=== PATIENT | female | born 1950 | race Caucasian/White ===

== ENCOUNTER 2017-07-05 11:13 | Emergency (ER) | payer OTHER ==
[2017-07-05 11:30] VITALS: BMI 34.7
--- NOTE | 2017-07-05 11:39 | PDOC ---
History of Present Illness - General Chief Complaint: Shortness of Breath Stated Complaint: SOB Time Seen by Provider: 07/05/17 11:39 Past History - Past Medical History Allergies/Adverse Reactions: Allergies Allergy/AdvReac Type Severity Reaction Status Date / Time acetaminophen [From Percocet] Allergy Verified 10/07/14 11:54 hydromorphone HCl Allergy Verified 10/07/14 11:54 [From Dilaudid] oxycodone HCl [From Percocet] Allergy Verified 10/07/14 11:54 Home Medications: Ambulatory Orders Albuterol Sulfate [Proair Hfa -] 1 - 2 inh PO PRN PRN 10/07/14 Aspirin [ASA -] 162 mg PO DAILY 10/07/14 Budesonide/Formeterol Fumarate [SYMBICORT 160/4.5mcg -] 2 inh PO DAILY 10/07/14 Clopidogrel Bisulfate [Plavix -] 75 mg PO DAILY 10/07/14 Furosemide [Lasix -] 20 mg PO DAILY 10/07/14 Rosuvastatin Calcium [Crestor] 20 mg PO DAILY 10/07/14 Tiotropium [place] [Spiriva -] 1 inh IH DAILY 10/07/14 Cardiac Disorders: Yes (cad,stentsx2,mvr) COPD: Yes CHF: Yes HTN: Yes Hypercholesterolemia: Yes - Surgical History Cardiac Surgery: Yes (stentx2) Orthopedic Surgery: Yes (edna hip replace) - Suicide/Smoking/Psychosocial Hx Smoking History: Former smoker Have you smoked in the past 12 months: No If you are a former smoker, when did you quit?: 15 YEARS AGO Information on smoking cessation initiated: No Hx Alcohol Use: No Drug/Substance Use Hx: No Substance Use Type: None Hx Substance Use Treatment: No *Physical Exam - Vital Signs Last Vital Signs Temp Pulse Resp BP Pulse Ox 98.0 F 86 24 149/56 92 L 07/05/17 11:26 07/05/17 11:26 07/05/17 11:26 07/05/17 11:26 07/05/17 11:26
--- NOTE | 2017-07-05 11:42 | PDOC ---
History of Present Illness - General Chief Complaint: Shortness of Breath Stated Complaint: SOB Time Seen by Provider: 07/05/17 11:39 - History of Present Illness Initial Comments: 07/05/17 11:51 Ms. Cowan is a 66 yo female w/ pmh of COPD and CAD s/p PCI LAD who presents complaining of 1-2 months of severe cough productive of white sputum. She reports associated runny nose and body aches. Ms. Cowan had presented to her primary doctor "around a month ago" for this same problem and been proscribed a Z-joan and oral steroids but says they were ineffective. She also reports a fever of "around 100" at home this morning. The patient denies chest pain, headache and dizziness. Denies chills, nausea, vomit, diarrhea and constipation. Denies dysuria, frequency, urgency and hematuria. Allergies: acetaminophen, hydromorphone, oxycodone Past History - Past Medical History Allergies/Adverse Reactions: Allergies Allergy/AdvReac Type Severity Reaction Status Date / Time acetaminophen [From Percocet] Allergy Verified 10/07/14 11:54 hydromorphone HCl Allergy Verified 10/07/14 11:54 [From Dilaudid] oxycodone HCl [From Percocet] Allergy Verified 10/07/14 11:54 Home Medications: Ambulatory Orders Albuterol Sulfate [Proair Hfa -] 1 - 2 inh PO PRN PRN 10/07/14 Aspirin [ASA -] 162 mg PO DAILY 10/07/14 Clopidogrel Bisulfate [Plavix -] 75 mg PO DAILY 10/07/14 Furosemide [Lasix -] 20 mg PO DAILY 10/07/14 Rosuvastatin Calcium [Crestor] 20 mg PO HS 10/07/14 Tiotropium [place] [Spiriva -] 1 inh IH DAILY 10/07/14 Budesonide/Formeterol Fumarate [SYMBICORT 160/4.5mcg -] 1 puff IN PRN 07/05/17 Doxycycline Monohydrate [Monodox] 100 mg PO Q12H #20 capsule 07/05/17 Losartan Potassium 25 mg PO DAILY 07/05/17 Montelukast Sodium [Singulair] 4 mg PO DAILY 07/05/17 Cardiac Disorders: Yes (cad,stentsx2,mvr) COPD: Yes CHF: Yes HTN: Yes Hypercholesterolemia: Yes - Surgical History Cardiac Surgery: Yes (stentx2) Orthopedic Surgery: Yes (edna hip replace) - Suicide/Smoking/Psychosocial Hx Smoking History: Former smoker Have you smoked in the past 12 months: No If you are a former smoker, when did you quit?: 15 YEARS AGO Information on smoking cessation initiated: No Hx Alcohol Use: No Drug/Substance Use Hx: No Substance Use Type: None Hx Substance Use Treatment: No Review of Systems - Review of Systems Comments:: 07/05/17 12:04 GENERAL/CONSTITUTIONAL: +Subjective home fever as above. No chills. No weakness. HEAD, EYES, EARS, NOSE AND THROAT: No change in vision. No ear pain or discharge. No sore throat. CARDIOVASCULAR: No chest pain or shortness of breath RESPIRATORY: +Chronic cough with white sputum with associated wheezing. No hemoptysis. GASTROINTESTINAL: No nausea, vomiting, diarrhea or constipation. GENITOURINARY: No dysuria, frequency, or change in urination. MUSCULOSKELETAL: +Resolved back pain she reports is no longer bothering her. No joint or muscle swelling or pain. SKIN: No rash NEUROLOGIC: No headache, vertigo, loss of consciousness, or change in strength/ sensation. ENDOCRINE: No increased thirst. No abnormal weight change HEMATOLOGIC/LYMPHATIC: No anemia, easy bleeding, or history of blood clots. ALLERGIC/IMMUNOLOGIC: No hives or skin allergy. *Physical Exam - Vital Signs Last Vital Signs Temp Pulse Resp BP Pulse Ox 98.0 F 86 24 149/56 92 L 07/05/17 11:26 07/05/17 11:26 07/05/17 11:26 07/05/17 11:26 07/05/17 11:26 - Physical Exam Comments: 07/05/17 12:05 GENERAL: Awake, alert, and fully oriented, in no acute distress HEAD: No signs of trauma, normocephalic, atraumatic EYES: PERRLA, EOMI, sclera anicteric, conjunctiva clear ENT: Auricles normal inspection, hearing grossly normal, nares patent, oropharynx clear without exudates. Moist mucosa NECK: Normal ROM, supple, no lymphadenopathy, JVD, or masses LUNGS: +Diffusely tight sounding. HEART: Regular rate and rhythm, normal S1 and S2, no murmurs, rubs or gallops, peripheral pulses normal and equal bilaterally. ABDOMEN: Soft, nontender, normoactive bowel sounds. No guarding, no rebound. No masses EXTREMITIES: Normal inspection, Normal range of motion, no edema. No clubbing or cyanosis. NEUROLOGICAL: Cranial nerves II through XII grossly intact. Normal speech, normal gait, no focal sensorimotor deficits SKIN: Warm, Dry, normal turgor, no rashes or lesions noted. ED Treatment Course - LABORATORY CBC & Chemistry Diagram: 07/05/17 13:41 07/05/17 13:41 Medical Decision Making - Medical Decision Making 07/05/17 12:33 Ms. Cowan presents w/ 1-2 months of cough c/w viral illness. Small possible pneumonia noted to R lung base on CXR. Rx given for CAP treatment. Patient will follow-up as needed with PCP. *DC/Admit/Observation/Transfer Diagnosis at time of Disposition: COPD exacerbation - Discharge Dispostion Disposition: HOME - Prescriptions Prescriptions: Doxycycline Monohydrate [Monodox] 100 mg PO Q12H #20 capsule - Referrals - Patient Instructions Printed Discharge Instructions: DI for Chronic Obstructive Pulmonary Disease Additional Instructions: Please take medications as proscribed and follow-up with your primary care doctor on Saturday as discussed. - Post Discharge Activity
[2017-07-05] MEDS ORDERED: ALBUTEROL SO4 0.083% IH SOL 2.5 MG/3 ML VIAL.NEB. NEB ONE (13:07)
[2017-07-05] MEDS ORDERED: IPRATROPIUM BR 0.02% 0.5 MG/2.5 ML VIAL.NEB. NEB ONE (13:07)
[2017-07-05] MEDS: ALBUTEROL SO4 2.5/IPRATROPIUM 0.5 INH SOL 3 ML VIAL.NEB. NEB SCH ×4 (13:25→16:55)
[2017-07-05 13:56] LABS: BASOPHIL 0.7 % (0-2.0); EOSINOPHIL 1.9 % (0-4.5); MCH 28.4 pg (25.7-33.7); MCHC 32.8 g/dl (32.0-36.0); MEAN CELL VOLUME 86.5 fl (80-96); MEAN PLT VOLUME 8.6 fl (7.5-11.1); NEUTROPHILS 68.8 % (42.8-82.8); PLATELET COUNT 234 K/MM3 (134-434); RDW 15.7 % (11.6-15.6); WHITE BLOOD COUNT 9.7 K/mm3 (4.0-10.0)
[2017-07-05] MEDS ORDERED: ALBUTEROL SO4 2.5/IPRATROPIUM 0.5 INH SOL 3 ML VIAL.NEB. NEB SCH (14:00)
[2017-07-05] MEDS ORDERED: ALBUTEROL SO4 2.5/IPRATROPIUM 0.5 INH SOL 3 ML VIAL.NEB. NEB ONE ×2 (14:25→16:56)
[2017-07-05 14:35] LABS: ALBUMIN 3.4 g/dl (3.4-5.0); ALK PHOS 109 U/L (45-117); ANION GAP 13 (8-16); BILIRUBIN,TOTAL 0.7 mg/dL (0.2-1.0); CALCIUM 8.7 mg/dL (8.5-10.1); CO2 23 mmol/L (21-32); CREATININE 0.8 mg/dL (0.55-1.02); GLUCOSE,RANDOM 110 mg/dL (74-106); SGPT/ALT 55 U/L (12-78); TOT PROT 8.2 g/dl (6.4-8.2)
[2017-07-05 14:36] LABS: SGOT/AST 73 U/L (15-37)
[2017-07-05] MEDS ORDERED: LEVOFLOXACIN 500 MG IVPB 500 MG/100 ML BAG IVPB ONE ×2 (16:03→16:56)
--- NOTE | 2017-07-05 16:32 | EKG ---
Test Reason : Blood Pressure : / mmHG Vent. Rate : 083 BPM Atrial Rate : 083 BPM P-R Int : 160 ms QRS Dur : 076 ms QT Int : 402 ms P-R-T Axes : 009 -11 014 degrees QTc Int : 472 ms POOR DATA QUALITY, INTERPRETATION MAY BE ADVERSELY AFFECTED NORMAL SINUS RHYTHM INFERIOR INFARCT (CITED ON OR BEFORE 07-OCT-2014) POSSIBLE ANTERIOR INFARCT (CITED ON OR BEFORE 07-OCT-2014) ABNORMAL ECG WHEN COMPARED WITH ECG OF 07-OCT-2014 12:34, T WAVE INVERSION NO LONGER EVIDENT IN ANTEROLATERAL LEADS Confirmed by MD GREG, SUMAN ([id number]) on 07/05/2017 4:31:56 PM Referred By: Confirmed By:SUMAN GARZA MD
--- NOTE | 2017-07-05 16:57 | PDOC ---
Attending Attestation - Resident Resident Name: Cal Ma - HPI HPI: 07/05/17 16:51 Pt presents to the Ed complaining of productive cough, shortness of breath and subjective fever. Seen by her PMD and given z pack without relief. 07/05/17 16:52 - Physicial Exam PE: 07/05/17 16:54 Agree with resident exam. PAtient is wheezing on my initial exam, with good air entry. No respiratory distress. - Medical Decision Making 07/05/17 16:55 Patient presents to the ED complaining of shortness of breath and wheezing consistent with prior COPD exacerbations. No relief despite nebs and steroids. Improving in the ED after nebs and steroids. Questionable PNA on CXR--will treat with levaquin and reassess.
[2017-07-05 17:25] VITALS: BP 133/66; PULSE 87; TEMP 98.1
--- NOTE | 2017-07-06 20:23 | EKG ---
Test Reason : Blood Pressure : / mmHG Vent. Rate : 086 BPM Atrial Rate : 086 BPM P-R Int : 158 ms QRS Dur : 078 ms QT Int : 400 ms P-R-T Axes : 033 -09 006 degrees QTc Int : 478 ms NORMAL SINUS RHYTHM INFERIOR INFARCT (CITED ON OR BEFORE 07-OCT-2014) ANTERIOR INFARCT (CITED ON OR BEFORE 07-OCT-2014) ABNORMAL ECG WHEN COMPARED WITH ECG OF 05-JUL-2017 11:53, NO SIGNIFICANT CHANGE WAS FOUND Confirmed by BRENDA ABEBE MD ([id number]) on 07/06/2017 8:22:52 PM Referred By: Confirmed By:BRENDA ABEBE MD
== END 2017-07-05 17:33 | disposition home or self-care (01) ==
LOC: JER 11:13
PROC: 3E0F7GC Introduction of Other Therapeutic Substance into Respiratory Tract, Via Natural or Artificial Opening (ICD-10-PCS; principal; 2017-07-05)
PROC: 3E03329 Introduction of Other Anti-infective into Peripheral Vein, Percutaneous Approach (ICD-10-PCS; 2017-07-05)
DX: J44.1 Chronic obstructive pulmonary disease with (acute) exacerbation (principal); I25.10 Atherosclerotic heart disease of native coronary artery without angina pectoris; I10 Essential (primary) hypertension; Z95.5 Presence of coronary angioplasty implant and graft; Z87.891 Personal history of nicotine dependence
CPT/HCPCS: 36415; 71020-TC; 80053; 85025; 87804; 93005; 93010; 94640; 96365; 99283-25

== ENCOUNTER 2017-09-30 07:19 | Inpatient (IN) | payer OTHER ==
[2017-09-30] MEDS ORDERED: SODIUM CHLORIDE 250 ML IV ONE (09:00)
[2017-09-30] MEDS ORDERED: DEXAMETHASONE INJECTION 20 MG, RANITIDINE INJECTION 50 MG, DIPHENHYDRAMINE 50 MG in SOD... IVPB ONE (10:00)
[2017-09-30] MEDS ORDERED: PALONOSETRON HCL 0.25 MG/5 ML VIAL IVPUSH ONE (10:00)
[2017-09-30 10:19] LABS: BASO % 0.6 % (0-2.0); HEMATOCRIT 42.9 % (32.4-45.2); HEMOGLOBIN 14.6 GM/dL (10.7-15.3); LYMPH % 14.8 % (8-40); MCH 29.7 pg (25.7-33.7); MCHC 34.1 g/dl (32.0-36.0); MEAN PLT VOLUME 8.1 fl (7.5-11.1); MONO % 1.2 % (3.8-10.2); NEUT % 83.4 % (42.8-82.8); PLATELET COUNT 289 K/MM3 (134-434); RBC 4.93 M/mm3 (3.60-5.2); RDW 16.1 % (11.6-15.6); WHITE BLOOD COUNT 4.3 K/mm3 (4.0-10.0)
[2017-09-30] MEDS ORDERED: PACLITAXEL 156 MG in SODIUM CHLORIDE 250 ML IVPB ONE (10:30)
[2017-09-30 10:47] LABS: ALBUMIN 3.3 g/dl (3.4-5.0); ALK PHOS 128 U/L (45-117); ANION GAP 16 (8-16); BILIRUBIN,DIRECT 0.2 mg/dL (0.0-0.2); BILIRUBIN,TOTAL 0.6 mg/dL (0.2-1.0); BLOOD UREA NITROGEN 17 mg/dL (7-18); CALCIUM 9.1 mg/dL (8.5-10.1); CHLORIDE 102 mmol/L (98-107); CO2 18 mmol/L (21-32); CREATININE 1.1 mg/dL (0.55-1.02); MAGNESIUM 2.6 mg/dL (1.8-2.4); POTASSIUM 3.8 mmol/L (3.5-5.1); SGOT/AST 29 U/L (15-37); SGPT/ALT 27 U/L (12-78); SODIUM 136 mmol/L (136-145); TOT PROT 9.2 g/dl (6.4-8.2)
[2017-09-30 10:57] LABS: GLUCOSE,RANDOM 301 mg/dL (74-106)
[2017-09-30] MEDS ORDERED: LOSARTAN POTASSIUM 25 MG TABLET PO ONE (11:00)
[2017-09-30] MEDS ORDERED: INSULIN (NOVOLOG) ASPART 100 UNITS/ML 10ML VIAL SQ ONE (11:30)
[2017-09-30] MEDS ORDERED: SODIUM CHLORIDE IVPB ONE (11:30)
[2017-09-30] MEDS ORDERED: CARBOPLATIN IVPB ONE (11:30)
[2017-09-30] MEDS: INSULIN SLIDING SCALE (NOVOLOG) 1 VIAL SQ SCH ×2 (16:21→21:39)
[2017-09-30] MEDS ORDERED: ALBUTEROL SO4 0.083% IH SOL 2.5 MG/3 ML VIAL.NEB. NEB ONE (17:18)
--- NOTE | 2017-09-30 18:48 | PN ---
Chief Complaint: PAtient with recently diagnosed lung cancer received carbo/taxol HAS been coughing O2 sat 84% R/A no fever/chills Last Vital Signs Temp Pulse Resp BP Pulse Ox 98.4 F 87 22 148/65 93 L 09/30/17 10:00 09/30/17 17:42 09/30/17 10:00 09/30/17 10:00 09/30/17 17:42 Cor: RSR, No murmurs, No gallops Lungs: Clear to P&A Abd: Soft, Normal bowel sounds, Ext:No significant edema Abnormal Lab Results 09/30/17 09/30/17 09:58 09:58 RDW 16.1 H Neutrophils % 83.4 H D Monocytes % 1.2 L D Carbon Dioxide 18 L Creatinine 1.1 H Random Glucose 301 H* Magnesium 2.6 H Alkaline Phosphatase 128 H Total Protein 9.2 H Albumin 3.3 L Active Medications Generic Name Dose Route Start Last Admin Trade Name Freq PRN Reason Stop Dose Admin Aspirin 162 mg 10/01/17 10:00 Asa - PO DAILY NICK Budesonide/Formoterol Fumarate 1 puff 09/30/17 22:00 Symbicort 160/4.5mcg - IH BID NICK Clopidogrel Bisulfate 75 mg 10/01/17 10:00 Plavix - PO DAILY NICK Guaifenesin/Codeine Phosphate 10 ml 09/30/17 18:48 Robitussin Ac - PO Q8H PRN COUGH Insulin Aspart 1 vial 09/30/17 16:30 09/30/17 16:21 Novolog Vial Sliding Scale - SQ 5 units ACHS NICK Administration Protocol Montelukast Sodium 5 mg 09/30/17 22:00 Singulair - PO HS NICK Rosuvastatin Calcium 20 mg 09/30/17 22:00 Crestor - PO HS NICK A/P 67 y/o patient with lung cancer, on carbo/taxol Now with cough/hypoxia received dexamethasone check CXR Nebulizer treatment lasix 20mg respiratory eval for home O2 robutussin prn continue home meds - Medications/Allergies Allergies/Adverse Reactions: Allergies Allergy/AdvReac Type Severity Reaction Status Date / Time acetaminophen [From Percocet] Allergy Verified 10/07/14 11:54 hydromorphone HCl Allergy Verified 10/07/14 11:54 [From Dilaudid] oxycodone HCl [From Percocet] Allergy Verified 10/07/14 11:54 Medications: Current Medications Insulin Aspart (Novolog Vial Sliding Scale -) 1 vial SQ ACHS NICK PRN Reason: Protocol Last Admin: 09/30/17 16:21 Dose: 5 units - Objective Vital Signs: Vital Signs Temperature 97.9 F 09/30/17 09:52 Pulse Rate 87 09/30/17 17:42 Respiratory Rate 22 09/30/17 09:52 Blood Pressure 149/75 09/30/17 09:52 O2 Sat by Pulse Oximetry (%) 93 L 09/30/17 17:42 Labs: CBC, BMP 09/30/17 09:58 09/30/17 09:58
[2017-09-30] MEDS ORDERED: FUROSEMIDE 20 MG TABLET (FP) PO ONE (18:52)
[2017-09-30] MEDS ORDERED: INSULIN (NOVOLOG) ASPART 100 UNITS/ML 10ML VIAL ONE (21:29)
[2017-09-30] MEDS: ROSUVASTATIN CA 20 MG TABLET (FP) PO SCH (21:39)
[2017-09-30] MEDS: BUDESONIDE/FORMETEROL FUMARATE 160/4.5 mcg INHALER IH SCH (21:39)
[2017-09-30] MEDS: MONTELUKAST NA 5 MG TAB.CHEW PO SCH (21:39)
[2017-09-30] MEDS: guaiFENesin/CODEINE 10 ML UNIT-DOSE CUPS PO PRN (21:44)
[2017-10-01] MEDS: INSULIN SLIDING SCALE (NOVOLOG) 1 VIAL SQ SCH ×4 (06:46→21:37)
[2017-10-01] MEDS ORDERED: INSULIN (NOVOLOG) ASPART 100 UNITS/ML 10ML VIAL ONE ×3 (06:53→20:49)
[2017-10-01 07:42] LABS: BASO % 0.1 % (0-2.0); HEMATOCRIT 36.2 % (32.4-45.2); HEMOGLOBIN 12.2 GM/dL (10.7-15.3); LYMPH % 7.1 % (8-40); MCH 29.4 pg (25.7-33.7); MCHC 33.6 g/dl (32.0-36.0); MEAN CELL VOLUME 87.6 fl (80-96); MEAN PLT VOLUME 8.2 fl (7.5-11.1); MONO % 5.1 % (3.8-10.2); NEUT % 87.7 % (42.8-82.8); PLATELET COUNT 257 K/MM3 (134-434); RBC 4.13 M/mm3 (3.60-5.2); RDW 15.8 % (11.6-15.6); WHITE BLOOD COUNT 9.9 K/mm3 (4.0-10.0)
[2017-10-01] MEDS ORDERED: ALBUTEROL SO4 0.083% IH SOL 2.5 MG/3 ML VIAL.NEB. NEB SCH (08:00)
[2017-10-01 08:08] LABS: CHLORIDE 106 mmol/L (98-107); POTASSIUM 4.2 mmol/L (3.5-5.1); SODIUM 138 mmol/L (136-145)
[2017-10-01 08:14] LABS: ALBUMIN 2.9 g/dl (3.4-5.0); ALK PHOS 101 U/L (45-117); ANION GAP 10 (8-16); BILIRUBIN,TOTAL 0.4 mg/dL (0.2-1.0); BLOOD UREA NITROGEN 22 mg/dL (7-18); CALCIUM 8.1 mg/dL (8.5-10.1); CO2 22 mmol/L (21-32); GLUCOSE,RANDOM 207 mg/dL (74-106); SGOT/AST 15 U/L (15-37); SGPT/ALT 22 U/L (12-78); TOT PROT 7.5 g/dl (6.4-8.2)
[2017-10-01] MEDS ORDERED: PT OWN MED DRAWER 7, Y5N ONE (09:11)
[2017-10-01] MEDS: CLOPIDOGREL BISULFATE 75 MG TABLET (FP) PO SCH (09:19)
[2017-10-01] MEDS: LOSARTAN POTASSIUM 25 MG TABLET PO SCH (09:19)
[2017-10-01] MEDS: ASPIRIN 81 MG CHEWABLE TABLETS PO SCH (09:19)
[2017-10-01] MEDS: BUDESONIDE/FORMETEROL FUMARATE 160/4.5 mcg INHALER IH SCH ×2 (09:20→21:33)
[2017-10-01] MEDS ORDERED: FUROSEMIDE 40 MG/4 ML INJECTABLE VIAL IVPUSH ONE (10:46)
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
[2017-10-01] MEDS ORDERED: FUROSEMIDE 40 MG/4 ML INJECTABLE VIAL IVPUSH SCH (10:59)
[2017-10-01] MEDS ORDERED: ALBUTEROL SO4 0.083% IH SOL 2.5 MG/3 ML VIAL.NEB. NEB PRN (11:00)
[2017-10-01] MEDS: FUROSEMIDE 40 MG/4 ML INJECTABLE VIAL IVPUSH SCH (13:21)
[2017-10-01] MEDS: ALBUTEROL SO4 2.5/IPRATROPIUM 0.5 INH SOL 3 ML VIAL.NEB. NEB SCH ×2 (14:30→21:10)
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
[2017-10-01 15:50] VITALS: BMI 34.0
--- NOTE | 2017-10-01 15:50 | EKG ---
Test Reason : Blood Pressure : / mmHG Vent. Rate : 076 BPM Atrial Rate : 076 BPM P-R Int : 160 ms QRS Dur : 076 ms QT Int : 418 ms P-R-T Axes : 047 -05 024 degrees QTc Int : 470 ms NORMAL SINUS RHYTHM INFERIOR INFARCT (CITED ON OR BEFORE 07-OCT-2014) ABNORMAL ECG WHEN COMPARED WITH ECG OF 05-JUL-2017 15:48, CRITERIA FOR ANTERIOR INFARCT ARE NO LONGER PRESENT NONSPECIFIC T WAVE ABNORMALITY NO LONGER EVIDENT IN ANTERIOR LEADS Confirmed by MD Amado, Vance ([id number]) on 10/01/2017 3:50:09 PM Referred By: Cinthia STRAUSS Confirmed By:Vance Fischer MD
[2017-10-01] MEDS: MONTELUKAST NA 5 MG TAB.CHEW PO SCH (21:33)
[2017-10-01] MEDS: ROSUVASTATIN CA 20 MG TABLET (FP) PO SCH (21:33)
--- NOTE | 2017-10-01 21:37 | PN ---
Progress Note (short form) - Note Progress Note: Pt seen and examined. chart reviewed Continues to have cough Cor: RSR, No murmurs, No gallops Lungs: poor inspi effort Abd: Soft, Normal bowel sounds, Ext:No significant edema Temp Pulse Resp BP Pulse Ox 97.3 F L 76 20 104/51 94 L 10/01/17 18:51 10/01/17 18:51 10/01/17 18:51 10/01/17 18:51 10/01/17 15:39 CBC, BMP 10/01/17 06:00 10/01/17 06:00 Current Medications Generic Name Dose Route Start Last Admin Trade Name Freq PRN Reason Stop Dose Admin Albuterol Sulfate 1 amp 10/01/17 11:00 Ventolin 0.083% Nebulizer Soln - NEB Q4H PRN SHORT OF BREATH/WHEEZING Albuterol/Ipratropium 1 amp 10/01/17 14:00 10/01/17 14:30 Duoneb - NEB 1 amp RTID NICK Administration Aspirin 162 mg 10/01/17 10:00 10/01/17 09:19 Asa - PO 162 mg DAILY NICK Administration Budesonide/Formoterol Fumarate 1 puff 09/30/17 22:00 10/01/17 09:20 Symbicort 160/4.5mcg - IH 1 puff BID NICK Administration Clopidogrel Bisulfate 75 mg 10/01/17 10:00 10/01/17 09:19 Plavix - PO 75 mg DAILY NICK Administration Furosemide 40 mg 10/01/17 12:00 10/01/17 13:21 Lasix Injection - IVPUSH 40 mg DAILY NICK Administration Guaifenesin/Codeine Phosphate 10 ml 09/30/17 18:48 09/30/17 21:44 Robitussin Ac - PO 10 ml Q8H PRN Administration COUGH Insulin Aspart 1 vial 09/30/17 16:30 10/01/17 17:24 Novolog Vial Sliding Scale - SQ Not Given ACHS NICK Protocol Losartan Potassium 25 mg 10/01/17 10:00 10/01/17 09:19 Cozaar - PO 25 mg DAILY NICK Administration Montelukast Sodium 5 mg 09/30/17 22:00 09/30/17 21:39 Singulair - PO 5 mg HS NICK Administration Rosuvastatin Calcium 20 mg 09/30/17 22:00 03/05/18 21:39 Crestor - PO 20 mg HS NICK Administration 67 y/o patient with lung cancer, on carbo/taxol Now with cough/hypoxia Multi-factorial. Appreciate cardiology/Pulm eval CXR in the am TTE Diuresis Nebs respiratory eval for home O2 robutussin prn continue home meds monitor FSG DVT ppx
[2017-10-01] MEDS: MAG HYDROX/AL HYDROX/SIMETH 30 ML UNIT-DOSE CUP PO PRN (22:28)
[2017-10-02] MEDS: INSULIN SLIDING SCALE (NOVOLOG) 1 VIAL SQ SCH ×4 (06:19→21:47)
[2017-10-02] MEDS: ALBUTEROL SO4 2.5/IPRATROPIUM 0.5 INH SOL 3 ML VIAL.NEB. NEB SCH ×3 (07:30→21:08)
[2017-10-02 08:03] LABS: MCH 29.3 pg (25.7-33.7); MCHC 33.2 g/dl (32.0-36.0); MEAN CELL VOLUME 88.1 fl (80-96); MEAN PLT VOLUME 8.5 fl (7.5-11.1); PLATELET COUNT 236 K/MM3 (134-434); RBC 4.08 M/mm3 (3.60-5.2); RDW 15.8 % (11.6-15.6); WHITE BLOOD COUNT 9.9 K/mm3 (4.0-10.0)
[2017-10-02 08:21] LABS: ALBUMIN 2.9 g/dl (3.4-5.0); ANION GAP 8 (8-16); BLOOD UREA NITROGEN 26 mg/dL (7-18); CALCIUM 7.7 mg/dL (8.5-10.1); CHLORIDE 102 mmol/L (98-107); CO2 28 mmol/L (21-32); CREATININE 0.9 mg/dL (0.55-1.02); GLUCOSE,RANDOM 128 mg/dL (74-106); POTASSIUM 3.7 mmol/L (3.5-5.1); SGOT/AST 23 U/L (15-37); SGPT/ALT 21 U/L (12-78); SODIUM 138 mmol/L (136-145)
[2017-10-02 08:29] LABS: ALK PHOS 100 U/L (45-117); BILIRUBIN,TOTAL 0.3 mg/dL (0.2-1.0); MAGNESIUM 2.8 mg/dL (1.8-2.4); TOT PROT 7.1 g/dl (6.4-8.2)
[2017-10-02] MEDS: BUDESONIDE/FORMETEROL FUMARATE 160/4.5 mcg INHALER IH SCH ×2 (09:21→21:41)
[2017-10-02] MEDS: ASPIRIN 81 MG CHEWABLE TABLETS PO SCH (09:22)
[2017-10-02] MEDS: guaiFENesin/CODEINE 10 ML UNIT-DOSE CUPS PO PRN ×3 (09:22→22:30)
[2017-10-02] MEDS: CLOPIDOGREL BISULFATE 75 MG TABLET (FP) PO SCH (09:22)
[2017-10-02] MEDS: LOSARTAN POTASSIUM 25 MG TABLET PO SCH (09:22)
[2017-10-02] MEDS: FUROSEMIDE 40 MG/4 ML INJECTABLE VIAL IVPUSH SCH (09:22)
--- NOTE | 2017-10-02 11:08 | PN ---
Progress Note (short form) - Note Progress Note: PULMONARY AWAKE/ALERT COUGH IS IMPROVING VSS/AFEBRILE MINIMAL SCATTERED RHONCHI S1S2 BS+ OBESE NO EDEMA LABS/MEDS/NOTES/IMAGES/ECHO REVIEWED Acute Hypoxic Respiratory Failure resolved Acute on Chronic Diastolic Heart Failure Mitral/Aortic Regurgitation CAD NSCLC on chemo COPD HTN Hypercholesterolemia - IV lasix - monitor urine output, creatinine - inhaled bronchodilators - less likely infectious given no fevers, normal WBC and nontoxic appearing, can defer antibiotics at this time - O2 to keep SpO2 >90% - will need to check ambulatory SpO2 to assess for home O2 - DVT prophylaxis Luis Felipe PAREDES MD
--- NOTE | 2017-10-02 11:19 | PN ---
Progress Note (short form) - Note Progress Note: Pt seen and examined. chart reviewed Continues to have cough Cor: RSR, No murmurs, No gallops Lungs: poor inspi effort Abd: Soft, Normal bowel sounds, Ext:No significant edema Temp Pulse Resp BP Pulse Ox 97.3 F L 76 20 104/51 94 L 10/01/17 18:51 10/01/17 18:51 10/01/17 18:51 10/01/17 18:51 10/01/17 15:39 CBC, BMP 10/01/17 06:00 10/01/17 06:00 Current Medications Generic Name Dose Route Start Last Admin Trade Name Freq PRN Reason Stop Dose Admin Albuterol Sulfate 1 amp 10/01/17 11:00 Ventolin 0.083% Nebulizer Soln - NEB Q4H PRN SHORT OF BREATH/WHEEZING Albuterol/Ipratropium 1 amp 10/01/17 14:00 10/01/17 14:30 Duoneb - NEB 1 amp RTID NICK Administration Aspirin 162 mg 10/01/17 10:00 10/01/17 09:19 Asa - PO 162 mg DAILY NICK Administration Budesonide/Formoterol Fumarate 1 puff 09/30/17 22:00 10/01/17 09:20 Symbicort 160/4.5mcg - IH 1 puff BID NICK Administration Clopidogrel Bisulfate 75 mg 10/01/17 10:00 10/01/17 09:19 Plavix - PO 75 mg DAILY NICK Administration Furosemide 40 mg 10/01/17 12:00 10/01/17 13:21 Lasix Injection - IVPUSH 40 mg DAILY NICK Administration Guaifenesin/Codeine Phosphate 10 ml 09/30/17 18:48 09/30/17 21:44 Robitussin Ac - PO 10 ml Q8H PRN Administration COUGH Insulin Aspart 1 vial 09/30/17 16:30 10/01/17 17:24 Novolog Vial Sliding Scale - SQ Not Given ACHS NICK Protocol Losartan Potassium 25 mg 10/01/17 10:00 10/01/17 09:19 Cozaar - PO 25 mg DAILY NICK Administration Montelukast Sodium 5 mg 09/30/17 22:00 09/30/17 21:39 Singulair - PO 5 mg HS NICK Administration Rosuvastatin Calcium 20 mg 09/30/17 22:00 03/05/18 21:39 Crestor - PO 20 mg HS NICK Administration 67 y/o patient with lung cancer, on carbo/taxol Now with cough/hypoxia Will continue with same mgmt d/w cxray findings w/ pulm will c/w same Rx
--- NOTE | 2017-10-02 21:25 | PN ---
Progress Note, Physician Chief Complaint: Pt A&Ox3; chest pain when coughs (which she has been doing for the past two weeks); trouble bringing up phlegm; +cough. History of Present Illness: 67 year old woman with a h/o Lung Ca on chemo, HTN, HLD, CAD s/p PCI LAD, Chronic diastolic/valvular CHF, mod to sev AR/MR, COPD came for chemo 48 hrs ago , and noted to be sob with coughing for the past few days thus admitted for further work up and treatment. Pt seen and examined today in nad. intermittently coughing. denies fever or chills. denies pnd, orthopnea, or LE edema. - Current Medication List Current Medications: Active Medications Al Hydroxide/Mg Hydroxide (Mylanta Oral Suspension -) 30 ml PO Q6H PRN PRN Reason: DYSPEPSIA Last Admin: 10/01/17 22:28 Dose: 30 ml Albuterol Sulfate (Ventolin 0.083% Nebulizer Soln -) 1 amp NEB Q4H PRN PRN Reason: SHORT OF BREATH/WHEEZING Albuterol/Ipratropium (Duoneb -) 1 amp NEB RTID [facility] Last Admin: 10/02/17 21:08 Dose: 1 amp Aspirin (Asa -) 162 mg PO DAILY [facility] Last Admin: 10/02/17 09:22 Dose: 162 mg Budesonide/Formoterol Fumarate (Symbicort 160/4.5mcg -) 1 puff IH BID [facility] Last Admin: 10/02/17 09:21 Dose: 1 puff Clopidogrel Bisulfate (Plavix -) 75 mg PO DAILY [facility] Last Admin: 10/02/17 09:22 Dose: 75 mg Furosemide (Lasix Injection -) 40 mg IVPUSH DAILY [facility] Last Admin: 10/02/17 09:22 Dose: 40 mg Guaifenesin/Codeine Phosphate (Robitussin Ac -) 10 ml PO Q8H PRN PRN Reason: COUGH Last Admin: 10/02/17 16:43 Dose: 10 ml Insulin Aspart (Novolog Vial Sliding Scale -) 1 vial SQ ACHS [facility] PRN Reason: Protocol Last Admin: 10/02/17 16:30 Dose: Not Given Losartan Potassium (Cozaar -) 25 mg PO DAILY [facility] Last Admin: 10/02/17 09:22 Dose: 25 mg Montelukast Sodium (Singulair -) 5 mg PO [facility] Last Admin: 10/01/17 21:33 Dose: 5 mg Rosuvastatin Calcium (Crestor -) 20 mg PO [facility] Last Admin: 10/01/17 21:33 Dose: 20 mg - Objective Vital Signs: Vital Signs Temperature 98.1 F 10/02/17 18:24 Pulse Rate 73 10/02/17 18:24 Respiratory Rate 20 10/02/17 18:24 Blood Pressure 92/40 10/02/17 18:24 O2 Sat by Pulse Oximetry (%) 93 L 10/02/17 11:49 Constitutional: Yes: Calm Eyes: Yes: WNL HENT: Yes: WNL Neck: Yes: WNL Cardiovascular: Yes: Murmur (systolic murmur 2/6 from LSB to apex), S1, S2 Respiratory: Yes: Cough, Diminished, Orthopnea, SOB on Exertion, Wheezes Gastrointestinal: Yes: Soft ...Rectal Exam: Yes: Deferred Genitourinary: No: Anuria Musculoskeletal: Yes: Muscle Weakness Extremities: Yes: Cool Edema: Yes Edema: LLE: Trace Peripheral Pulses WNL: Yes Integumentary: Yes: WNL Neurological: Yes: Alert, Oriented Psychiatric: Yes: WNL Labs: CBC, BMP 10/02/17 06:00 10/02/17 06:00 Abnormal Lab Results 10/02/17 10/02/17 06:00 06:00 RDW 15.8 H BUN 26 H Random Glucose 128 H Calcium 7.7 L Magnesium 2.8 H Albumin 2.9 L Abnormal Lab Results 10/02/17 10/02/17 06:00 06:00 RDW 15.8 H BUN 26 H Random Glucose 128 H Calcium 7.7 L Magnesium 2.8 H Albumin 2.9 L - ....Imaging Chest X-ray: Image Reviewed (IS infiltrates) Problem List - Problems (1) Acute on chronic diastolic (congestive) heart failure Code(s): I50.33 - ACUTE ON CHRONIC DIASTOLIC (CONGESTIVE) HEART FAILURE (2) Aortic regurgitation Assessment/Plan: mild AR, TR, and MR, with normal LVEF on ECHO. Code(s): I35.1 - NONRHEUMATIC AORTIC (VALVE) INSUFFICIENCY (3) CAD (coronary artery disease) Code(s): I25.10 - ATHSCL HEART DISEASE OF [place] CORONARY ARTERY W/O ANG PCTRS (4) COPD (chronic obstructive pulmonary disease) Code(s): J44.9 - CHRONIC OBSTRUCTIVE PULMONARY DISEASE, UNSPECIFIED (5) Lung cancer Code(s): C34.90 - MALIGNANT NEOPLASM OF UNSP PART OF UNSP BRONCHUS OR LUNG (6) Mitral regurgitation Code(s): I34.0 - NONRHEUMATIC MITRAL (VALVE) INSUFFICIENCY (7) COPD exacerbation Code(s): J44.1 - CHRONIC OBSTRUCTIVE PULMONARY DISEASE W (ACUTE) EXACERBATION (8) History of prosthetic pulmonic valve replacement Code(s): Z95.2 - PRESENCE OF PROSTHETIC HEART VALVE (9) Shortness of breath Assessment/Plan: ECHO: normal LVEF; mild LAE; mild MR, TR, and AR. On O2 per video operator. On losartan and IV furosemide. F/u Is and Os, daily weight, BUN/Cr and electrolytes. Code(s): R06.02 - SHORTNESS OF BREATH
[2017-10-02] MEDS: MONTELUKAST NA 5 MG TAB.CHEW PO SCH (21:40)
[2017-10-02] MEDS: ROSUVASTATIN CA 20 MG TABLET (FP) PO SCH (21:40)
[2017-10-03] MEDS ORDERED: IBUPROFEN 400 MG TABLET (FP) PO ONE (00:30)
[2017-10-03] MEDS: ALBUTEROL SO4 2.5/IPRATROPIUM 0.5 INH SOL 3 ML VIAL.NEB. NEB SCH ×3 (07:35→20:21)
[2017-10-03] MEDS: INSULIN SLIDING SCALE (NOVOLOG) 1 VIAL SQ SCH ×3 (09:11→16:39)
[2017-10-03] MEDS ORDERED: FUROSEMIDE 40 MG/4 ML INJECTABLE VIAL IVPUSH ONE ×2 (09:40→11:45)
[2017-10-03] MEDS: FUROSEMIDE 40 MG TABLET (FP) PO SCH (10:10)
[2017-10-03] MEDS: CLOPIDOGREL BISULFATE 75 MG TABLET (FP) PO SCH (10:10)
[2017-10-03] MEDS: ASPIRIN 81 MG CHEWABLE TABLETS PO SCH (10:10)
[2017-10-03] MEDS: LOSARTAN POTASSIUM 25 MG TABLET PO SCH (10:11)
[2017-10-03] MEDS: BUDESONIDE/FORMETEROL FUMARATE 160/4.5 mcg INHALER IH SCH ×2 (10:12→21:19)
--- NOTE | 2017-10-03 11:30 | PN ---
Progress Note (short form) - Note Progress Note: Pt seen and examined. chart reviewed +n/v overnight, Cor: RSR, No murmurs, No gallops Lungs: +crackles Abd: Soft, Normal bowel sounds, Ext:No significant edema Temp Pulse Resp BP Pulse Ox 97.3 F L 76 20 104/51 94 L 10/01/17 18:51 10/01/17 18:51 10/01/17 18:51 10/01/17 18:51 10/01/17 15:39 CBC, BMP 10/01/17 06:00 10/01/17 06:00 Current Medications Generic Name Dose Route Start Last Admin Trade Name Freq PRN Reason Stop Dose Admin Albuterol Sulfate 1 amp 10/01/17 11:00 Ventolin 0.083% Nebulizer Soln - NEB Q4H PRN SHORT OF BREATH/WHEEZING Albuterol/Ipratropium 1 amp 10/01/17 14:00 10/01/17 14:30 Duoneb - NEB 1 amp RTID NICK Administration Aspirin 162 mg 10/01/17 10:00 10/01/17 09:19 Asa - PO 162 mg DAILY NICK Administration Budesonide/Formoterol Fumarate 1 puff 09/30/17 22:00 10/01/17 09:20 Symbicort 160/4.5mcg - IH 1 puff BID NICK Administration Clopidogrel Bisulfate 75 mg 10/01/17 10:00 10/01/17 09:19 Plavix - PO 75 mg DAILY NICK Administration Furosemide 40 mg 10/01/17 12:00 10/01/17 13:21 Lasix Injection - IVPUSH 40 mg DAILY NICK Administration Guaifenesin/Codeine Phosphate 10 ml 09/30/17 18:48 09/30/17 21:44 Robitussin Ac - PO 10 ml Q8H PRN Administration COUGH Insulin Aspart 1 vial 09/30/17 16:30 10/01/17 17:24 Novolog Vial Sliding Scale - SQ Not Given ACHS NICK Protocol Losartan Potassium 25 mg 10/01/17 10:00 10/01/17 09:19 Cozaar - PO 25 mg DAILY NICK Administration Montelukast Sodium 5 mg 09/30/17 22:00 09/30/17 21:39 Singulair - PO 5 mg HS NICK Administration Rosuvastatin Calcium 20 mg 09/30/17 22:00 09/30/17 21:39 Crestor - PO 20 mg HS NICK Administration 67 y/o patient with lung cancer, on carbo/taxol Now with cough/hypoxia continues to improve change to PO lasix anticipate DC tomorrow Home O2 set up DVTppx for OP f.u
--- NOTE | 2017-10-03 11:46 | PN ---
Progress Note, Physician History of Present Illness: seen and examined today in nad. states she is feeling significantly better. sob improved. - Current Medication List Current Medications: Active Medications Al Hydroxide/Mg Hydroxide (Mylanta Oral Suspension -) 30 ml PO Q6H PRN PRN Reason: DYSPEPSIA Last Admin: 10/01/17 22:28 Dose: 30 ml Albuterol Sulfate (Ventolin 0.083% Nebulizer Soln -) 1 amp NEB Q4H PRN PRN Reason: SHORT OF BREATH/WHEEZING Albuterol/Ipratropium (Duoneb -) 1 amp NEB RTID [facility] Last Admin: 10/03/17 07:35 Dose: 1 amp Aspirin (Asa -) 162 mg PO DAILY [facility] Last Admin: 10/03/17 10:10 Dose: 162 mg Budesonide/Formoterol Fumarate (Symbicort 160/4.5mcg -) 1 puff IH BID [facility] Last Admin: 10/03/17 10:12 Dose: 1 puff Clopidogrel Bisulfate (Plavix -) 75 mg PO DAILY [facility] Last Admin: 10/03/17 10:10 Dose: 75 mg Furosemide (Lasix -) 40 mg PO DAILY [facility] Last Admin: 10/03/17 10:10 Dose: 40 mg Furosemide (Lasix Injection -) 20 mg IVPUSH ONCE ONE Stop: 10/03/17 11:31 Guaifenesin/Codeine Phosphate (Robitussin Ac -) 10 ml PO Q8H PRN PRN Reason: COUGH Last Admin: 10/02/17 22:30 Dose: 10 ml Insulin Aspart (Novolog Vial Sliding Scale -) 1 vial SQ ACHS NICK PRN Reason: Protocol Last Admin: 10/03/17 11:33 Dose: Not Given Losartan Potassium (Cozaar -) 25 mg PO DAILY [facility] Last Admin: 10/03/17 10:11 Dose: 25 mg Montelukast Sodium (Singulair -) 5 mg PO HS [facility] Last Admin: 10/02/17 21:40 Dose: 5 mg Rosuvastatin Calcium (Crestor -) 20 mg PO HS [facility] Last Admin: 10/02/17 21:40 Dose: 20 mg - Objective Vital Signs: Vital Signs Temperature 97.9 F 10/03/17 09:11 Pulse Rate 85 10/03/17 09:11 Respiratory Rate 20 10/03/17 09:11 Blood Pressure 107/48 10/03/17 09:11 O2 Sat by Pulse Oximetry (%) 94 L 10/02/17 21:00 Constitutional: Yes: No Distress, Calm Eyes: Yes: Conjunctiva Clear, EOM Intact, PERRL HENT: Yes: Atraumatic, Normocephalic Neck: Yes: Supple, Trachea Midline Cardiovascular: Yes: Regular Rate and Rhythm, S1, S2. No: Bradycardia, Tachycardia, Pulse Irregular, Bruit, JVD, Gallop, Murmur, Rub, S3, S4, Varicosities Respiratory: Yes: Regular, Rhonchi. No: Rales, Wheezes Gastrointestinal: Yes: Normal Bowel Sounds, Soft. No: Distention, Tenderness Extremities: Yes: WNL Edema: No Peripheral Pulses: Left Doralis Pedis: 2+, Right Dorsalis Pedis: 2+ Wound/Incision: Yes: Unapproximated Neurological: Yes: Alert Psychiatric: Yes: Alert, Oriented Labs: CBC, BMP 10/02/17 06:00 10/02/17 06:00 - ....Imaging Chest X-ray: Report Reviewed, Image Reviewed EKG: Report Reviewed, Image Reviewed Other: Report Reviewed, Image Reviewed Assessment/Plan 67 year old woman with a h/o Lung Ca on chemo, HTN, HLD, CAD s/p PCI LAD, Chronic diastolic/valvular CHF, mod to sev AR/MR, COPD came for chemo yesterday and noted to be sob with coughing for the past few days thus admitted for furthe work up and treatment. Pt seen and examined today in nad. intermittently coughing. denies fever or chills. denies pnd, orthopnea, or LE edema. SOB/Cough-multiple possible etiologies -acute on chronic diastolic/valvular CHF, volume status improved -AE COPD -Viral URI -PNA -interstitial lung disease -combination of the above superimposed on Lung CA -agree with transition to po Lasix -echo showed normal LV systolic function, mild valvular abnormalities, no pericardial effusion -no additional inpatient cardiac work up needed at this point CAD s/p PCI LAd-stable -cont asa and plavix -cont other home meds -outpatient f/up
--- NOTE | 2017-10-03 12:05 | PN ---
Progress Note (short form) - Note Progress Note: PULMONARY AWAKE/ALERT COUGH IS IMPROVING EPISODE OF VOMITING LAST PM VSS/AFEBRILE MINIMAL SCATTERED RHONCHI S1S2 BS+ OBESE NO EDEMA LABS/MEDS/NOTES/IMAGES/ECHO REVIEWED Acute Hypoxic Respiratory Failure resolved Acute on Chronic Diastolic Heart Failure Mitral/Aortic Regurgitation CAD NSCLC on chemo COPD HTN Hypercholesterolemia - diuretics - will require home O2 based on testing - monitor urine output, creatinine - inhaled bronchodilators - O2 to keep SpO2 >90% - DVT prophylaxis Luis Felipe PAREDES MD
[2017-10-03] MEDS: MAG HYDROX/AL HYDROX/SIMETH 30 ML UNIT-DOSE CUP PO PRN (18:09)
[2017-10-03] MEDS ORDERED: PT OWN MED DRAWER 7, Y5N ONE (20:02)
[2017-10-03] MEDS ORDERED: ACETAMINOPHEN 325 MG TABLET (FP) PO PRN (20:33)
[2017-10-03] MEDS: ROSUVASTATIN CA 20 MG TABLET (FP) PO SCH (21:00)
[2017-10-03] MEDS: MONTELUKAST NA 5 MG TAB.CHEW PO SCH (21:00)
[2017-10-04] MEDS: ALBUTEROL SO4 2.5/IPRATROPIUM 0.5 INH SOL 3 ML VIAL.NEB. NEB SCH ×2 (07:40→13:37)
--- NOTE | 2017-10-04 09:21 | DS ---
Physical Examination Vital Signs: Vital Signs Temperature 97.9 F 10/04/17 06:00 Pulse Rate 103 H 10/04/17 06:00 Respiratory Rate 20 10/04/17 06:00 Blood Pressure 152/84 10/04/17 06:00 O2 Sat by Pulse Oximetry (%) 94 L 10/03/17 21:00 Constitutional: Yes: Well Nourished, No Distress, Calm Eyes: Yes: Conjunctiva Clear HENT: Yes: Atraumatic, Normocephalic Neck: Yes: Supple Cardiovascular: Yes: Regular Rate and Rhythm Respiratory: Yes: Regular Gastrointestinal: Yes: Normal Bowel Sounds, Soft Edema: No Labs: CBC, BMP 10/02/17 06:00 10/02/17 06:00 Discharge Summary Reason For Visit: LUNG CANCER (C34.91) Current Active Problems Acute on chronic diastolic (congestive) heart failure (Acute) Aortic regurgitation (Acute) CAD (coronary artery disease) (Acute) COPD (chronic obstructive pulmonary disease) (Acute) History of prosthetic pulmonic valve replacement (Acute) Lung cancer (Acute) Mitral regurgitation (Acute) Shortness of breath (Acute) Hospital Course: Admitted for severe cough and hypoxia post receiving chemotherapy for Lung cancer ( carbo/taxol) Thought to be multi-factorial. from COPD/ILD/dCHF/Lung cancer. Was seen by Pulm/Cardiology Was given IV diuresis Assessed for home oxygen and is qualified. She is being discharged on Home Oxygen She will follow-up in our office with post discharge. She is aware she needs f.u with Cardiology/Pulmonary Condition: Good - Instructions Referrals: Noreen Carrasco MD [Non Staff, Medical] - Leonard Villa MD [Staff Physician] - Luis Fernando Potter MD [Staff Physician] - Disposition: HOME - Home Medications Comprehensive Discharge Medication List: Ambulatory Orders Albuterol Sulfate [Proair Hfa -] 1 - 2 inh PO PRN PRN 10/07/14 Aspirin [ASA -] 162 mg PO DAILY 10/07/14 Clopidogrel Bisulfate [Plavix -] 75 mg PO DAILY 10/07/14 Furosemide [Lasix -] 20 mg PO DAILY 10/07/14 Rosuvastatin Calcium [Crestor] 20 mg PO HS 10/07/14 Tiotropium [place] [Spiriva -] 1 inh IH DAILY 10/07/14 Budesonide/Formeterol Fumarate [SYMBICORT 160/4.5mcg -] 1 puff IN PRN 07/05/17 Doxycycline Monohydrate [Monodox] 100 mg PO Q12H #20 capsule 07/05/17 Losartan Potassium 25 mg PO DAILY 07/05/17 Montelukast Sodium [Singulair] 10 mg PO DAILY 07/05/17
--- NOTE | 2017-10-04 09:48 | PN ---
Progress Note, Physician Chief Complaint: Planned for d/c today Feels well no new complaints - Current Medication List Current Medications: Active Medications Acetaminophen (Tylenol -) 650 mg PO Q6H PRN PRN Reason: PAIN LEVEL 1 - 3 Last Admin: 10/03/17 20:45 Dose: 650 mg Al Hydroxide/Mg Hydroxide (Mylanta Oral Suspension -) 30 ml PO Q6H PRN PRN Reason: DYSPEPSIA Last Admin: 10/03/17 18:09 Dose: 30 ml Albuterol Sulfate (Ventolin 0.083% Nebulizer Soln -) 1 amp NEB Q4H PRN PRN Reason: SHORT OF BREATH/WHEEZING Albuterol/Ipratropium (Duoneb -) 1 amp NEB RTID [facility] Last Admin: 10/04/17 07:40 Dose: 1 amp Aspirin (Asa -) 162 mg PO DAILY [facility] Last Admin: 10/03/17 10:10 Dose: 162 mg Budesonide/Formoterol Fumarate (Symbicort 160/4.5mcg -) 1 puff IH BID [facility] Last Admin: 10/03/17 21:19 Dose: 1 puff Clopidogrel Bisulfate (Plavix -) 75 mg PO DAILY [facility] Last Admin: 10/03/17 10:10 Dose: 75 mg Furosemide (Lasix -) 40 mg PO DAILY [facility] Last Admin: 10/03/17 10:10 Dose: 40 mg Guaifenesin/Codeine Phosphate (Robitussin Ac -) 10 ml PO Q8H PRN PRN Reason: COUGH Last Admin: 10/02/17 22:30 Dose: 10 ml Losartan Potassium (Cozaar -) 25 mg PO DAILY [facility] Last Admin: 10/03/17 10:11 Dose: 25 mg Montelukast Sodium (Singulair -) 5 mg PO HS [facility] Last Admin: 10/03/17 21:00 Dose: 5 mg Rosuvastatin Calcium (Crestor -) 20 mg PO [facility] Last Admin: 10/03/17 21:00 Dose: 20 mg - Objective Vital Signs: Vital Signs Temperature 97.9 F 10/04/17 06:00 Pulse Rate 103 H 10/04/17 06:00 Respiratory Rate 20 10/04/17 06:00 Blood Pressure 152/84 10/04/17 06:00 O2 Sat by Pulse Oximetry (%) 94 L 10/03/17 21:00 Constitutional: Yes: No Distress, Calm Eyes: Yes: Conjunctiva Clear Cardiovascular: Yes: Regular Rate and Rhythm Respiratory: Yes: Other (decreased breath sounds right base) Gastrointestinal: Yes: Soft Edema: No Neurological: Yes: Alert, Oriented Labs: CBC, BMP 10/02/17 06:00 10/02/17 06:00 Laboratory Tests 10/02/17 10/02/17 06:00 06:00 WBC 9.9 Hgb 12.0 Plt Count 236 Potassium 3.7 Creatinine 0.9 Assessment/Plan 67 year old woman with a h/o Lung Ca on chemo, HTN, HLD, CAD s/p PCI LAD, Chronic diastolic/valvular CHF, mod to sev AR/MR, COPD came for chemo yesterday and noted to be sob with coughing for the past few days thus admitted for furthe work up and treatment. Pt seen and examined today in nad. intermittently coughing. denies fever or chills. denies pnd, orthopnea, or LE edema. SOB/Cough-multifactorial -acute on chronic diastolic/valvular CHF, volume status improved -AE COPD -Viral URI -PNA -interstitial lung disease -combination of the above superimposed on Lung CA -cont. PO Lasix -echo showed normal LV systolic function, mild valvular abnormalities, no pericardial effusion -no additional inpatient cardiac work up needed at this point CAD s/p PCI LAd-stable -cont asa and plavix -cont other home meds -outpatient f/up. Should see Dr. Carrasco in 1 week for volume assessment. Will have office arrange appt.
[2017-10-04] MEDS: LOSARTAN POTASSIUM 25 MG TABLET PO SCH (09:57)
[2017-10-04] MEDS: ASPIRIN 81 MG CHEWABLE TABLETS PO SCH (09:57)
[2017-10-04] MEDS: BUDESONIDE/FORMETEROL FUMARATE 160/4.5 mcg INHALER IH SCH (09:57)
[2017-10-04] MEDS: FUROSEMIDE 40 MG TABLET (FP) PO SCH (09:57)
[2017-10-04] MEDS: CLOPIDOGREL BISULFATE 75 MG TABLET (FP) PO SCH (09:57)
[2017-10-04 13:44] VITALS: BP 115/59; PULSE 88; TEMP 98.2
[2017-10-04] MEDS ORDERED: PORTA CATH FLUSH 10 ML IVPUSH ONE (16:42)
== END 2017-10-04 15:35 | disposition home or self-care (01) | DRG 180 ==
LOC: JONCCHEMO 07:19 → J7W 10:50 → JONCCHEMO 10:51 → J7W 10:51
PROVIDERS: ADMIT Internal Medicine Hematology & Oncology; ATTEND Internal Medicine Hematology & Oncology
DX: C34.90 Malignant neoplasm of unspecified part of unspecified bronchus or lung (principal); J96.01 Acute respiratory failure with hypoxia; I50.33 Acute on chronic diastolic (congestive) heart failure; J84.9 Interstitial pulmonary disease, unspecified; J44.1 Chronic obstructive pulmonary disease with (acute) exacerbation; I11.0 Hypertensive heart disease with heart failure; I25.10 Atherosclerotic heart disease of native coronary artery without angina pectoris; Z95.5 Presence of coronary angioplasty implant and graft; I35.1 Nonrheumatic aortic (valve) insufficiency; I34.0 Nonrheumatic mitral (valve) insufficiency; E78.00 Pure hypercholesterolemia, unspecified; Z87.891 Personal history of nicotine dependence; J44.9 Chronic obstructive pulmonary disease, unspecified; J06.9 Acute upper respiratory infection, unspecified; E66.9 Obesity, unspecified; Z68.33 Body mass index [BMI] 33.0-33.9, adult
CPT/HCPCS: 36415; 71045-TC-FY; 80053; 80076; 82378; 82962; 83735; 85025; 85027; 93005; 93010; 93306-TC; 94640; 94761; 96361; 96367; 96375; 96413; 96415; 96417; 97116-GP; 97161-GP; J1100; J2469

== ENCOUNTER 2017-10-07 07:35 | Day surgery (SDC) | payer OTHER ==
[2017-10-07] MEDS ORDERED: SODIUM CHLORIDE 250 ML IV ONE (09:00)
[2017-10-07] MEDS ORDERED: PALONOSETRON HCL 0.25 MG/5 ML VIAL IVPUSH ONE (10:00)
[2017-10-07] MEDS ORDERED: DEXAMETHASONE INJECTION 20 MG, RANITIDINE INJECTION 50 MG, DIPHENHYDRAMINE 50 MG in SOD... IVPB ONE (10:00)
[2017-10-07] MEDS ORDERED: PACLITAXEL 156 MG in SODIUM CHLORIDE 250 ML IVPB ONE (10:30)
[2017-10-07] MEDS ORDERED: CARBOPLATIN IVPB ONE (11:30)
[2017-10-07] MEDS ORDERED: SODIUM CHLORIDE IVPB ONE (11:30)
[2017-10-07 11:32] LABS: BASO % 0.4 % (0-2.0); HEMATOCRIT 40.4 % (32.4-45.2); HEMOGLOBIN 13.5 GM/dL (10.7-15.3); LYMPH % 12.3 % (8-40); MCH 29.1 pg (25.7-33.7); MCHC 33.4 g/dl (32.0-36.0); MEAN PLT VOLUME 8.4 fl (7.5-11.1); MONO % 0.4 % (3.8-10.2); NEUT % 86.9 % (42.8-82.8); PLATELET COUNT 311 K/MM3 (134-434); RBC 4.64 M/mm3 (3.60-5.2); RDW 15.3 % (11.6-15.6); WHITE BLOOD COUNT 2.8 K/mm3 (4.0-10.0)
[2017-10-07 11:52] LABS: ALBUMIN 3.3 g/dl (3.4-5.0); ANION GAP 14 (8-16); BILIRUBIN,DIRECT 0.2 mg/dL (0.0-0.2); BLOOD UREA NITROGEN 23 mg/dL (7-18); CALCIUM 9.4 mg/dL (8.5-10.1); CHLORIDE 98 mmol/L (98-107); CO2 24 mmol/L (21-32); GLUCOSE,RANDOM 458 mg/dL (74-106); MAGNESIUM 2.5 mg/dL (1.8-2.4); POTASSIUM 4.4 mmol/L (3.5-5.1); SGOT/AST 24 U/L (15-37); SODIUM 136 mmol/L (136-145)
[2017-10-07 11:55] LABS: ALK PHOS 118 U/L (45-117); BILIRUBIN,TOTAL 0.5 mg/dL (0.2-1.0); CREATININE 1.2 mg/dL (0.55-1.02); SGPT/ALT 35 U/L (12-78); TOT PROT 8.2 g/dl (6.4-8.2)
[2017-10-07] MEDS ORDERED: INSULIN (NOVOLOG) ASPART 100 UNITS/ML 10ML VIAL SQ ONE (16:00)
[2017-10-07 17:22] VITALS: BP 131/71; PULSE 84; TEMP 98
[2017-10-07] MEDS ORDERED: PORTA CATH FLUSH 10 ML IVPUSH ONE (17:22)
== END 2017-10-07 17:25 | disposition home or self-care (01) ==
LOC: JONCCHEMO 07:35 → J7W 11:38 → JONCCHEMO 17:25
PROVIDERS: ATTEND Internal Medicine Hematology & Oncology
DX: Z51.11 Encounter for antineoplastic chemotherapy (principal); C34.90 Malignant neoplasm of unspecified part of unspecified bronchus or lung
CPT/HCPCS: 36415; 80053; 80076; 82962; 83735; 85025; 96361; 96375; 96413; 96417; J1100; J2469

== ENCOUNTER 2017-10-14 07:19 | Day surgery (SDC) | payer OTHER ==
[2017-10-14] MEDS ORDERED: SODIUM CHLORIDE 250 ML IV ONE (08:00)
[2017-10-14] MEDS ORDERED: DEXAMETHASONE INJECTION 20 MG, DIPHENHYDRAMINE 50 MG, RANITIDINE INJECTION 50 MG in SOD... IVPB ONE (08:30)
[2017-10-14] MEDS ORDERED: PALONOSETRON HCL 0.25 MG/5 ML VIAL IVPUSH ONE (08:30)
[2017-10-14] MEDS ORDERED: PACLITAXEL 156 MG in SODIUM CHLORIDE 250 ML IVPB ONE (09:00)
[2017-10-14] MEDS ORDERED: SODIUM CHLORIDE IVPB ONE (10:00)
[2017-10-14] MEDS ORDERED: CARBOPLATIN IVPB ONE (10:00)
[2017-10-14 11:18] LABS: BASO % 0.1 % (0-2.0); HEMATOCRIT 38.3 % (32.4-45.2); HEMOGLOBIN 12.6 GM/dL (10.7-15.3); LYMPH % 11.6 % (8-40); MCH 28.8 pg (25.7-33.7); MCHC 32.8 g/dl (32.0-36.0); MEAN PLT VOLUME 8.1 fl (7.5-11.1); MONO % 1.6 % (3.8-10.2); NEUT % 86.7 % (42.8-82.8); PLATELET COUNT 231 K/MM3 (134-434); RBC 4.35 M/mm3 (3.60-5.2); RDW 15.9 % (11.6-15.6); WHITE BLOOD COUNT 3.1 K/mm3 (4.0-10.0)
[2017-10-14 11:56] LABS: ALBUMIN 3.2 g/dl (3.4-5.0); ANION GAP 11 (8-16); BILIRUBIN,DIRECT 0.2 mg/dL (0.0-0.2); BILIRUBIN,TOTAL 0.8 mg/dL (0.2-1.0); BLOOD UREA NITROGEN 16 mg/dL (7-18); CALCIUM 8.2 mg/dL (8.5-10.1); CHLORIDE 99 mmol/L (98-107); CO2 23 mmol/L (21-32); CREATININE 1.1 mg/dL (0.55-1.02); SGOT/AST 14 U/L (15-37); SGPT/ALT 25 U/L (12-78); SODIUM 133 mmol/L (136-145); TOT PROT 7.8 g/dl (6.4-8.2)
[2017-10-14 11:57] LABS: ALK PHOS 109 U/L (45-117)
[2017-10-14 12:18] LABS: GLUCOSE,RANDOM 484 mg/dL (74-106)
[2017-10-14] MEDS ORDERED: INSULIN (NOVOLOG) ASPART 100 UNITS/ML 10ML VIAL SQ ONE (13:00)
[2017-10-14] MEDS ORDERED: ALBUTEROL SO4 0.083% IH SOL 2.5 MG/3 ML VIAL.NEB. NEB ONE (15:46)
[2017-10-14 18:58] VITALS: BP 121/50; PULSE 86; TEMP 97.8
== END 2017-10-14 17:00 | disposition home or self-care (01) ==
LOC: JONCCHEMO 07:19 → J7W 12:31 → JONCCHEMO 17:00
PROVIDERS: ATTEND Internal Medicine Hematology & Oncology
DX: Z51.11 Encounter for antineoplastic chemotherapy (principal); C34.90 Malignant neoplasm of unspecified part of unspecified bronchus or lung
CPT/HCPCS: 36415; 80053; 80076; 83735; 85025; 94640; 96361; 96367; 96375; 96413; 96417; J1100; J2469

== ENCOUNTER 2017-10-21 02:08 | Inpatient (IN) | payer OTHER ==
--- NOTE | 2017-10-21 02:18 | PDOC ---
History of Present Illness - General Chief Complaint: Weakness Stated Complaint: WEAKNESS Time Seen by Provider: 10/21/17 02:18 History Source: Family Exam Limitations: Clinical Condition - History of Present Illness Initial Comments: 10/21/17 02:39 Ms. 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 pt is receiving chemotherapy at the hospital every Saturday and she received shot on to increase her wbc per daughter since then she has been detriorating , less active. pt daughter at bed side provide the history , pt has chronic cough with phlegm, pt complains of generalized pain in her bone , back and neck and she was taking ibuprofen for that, She also reports headache , dizziness , lightheadedness, blurry vision , she reports dropping in her o2 sat to 85 %, The patient denies chest pain. Denies nausea, vomit, diarrhea and constipation. Denies dysuria, frequency, urgency and hematuria. 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 she quit 15 years ago , denies any alcohol or drug abuse Noreen Carrasco MD Primary physician Leonard Villa MD Pulmonary Luis Fernando Potter MD Oncology radiation Physical exam : GENERAL: Awake, alert, in moderate distress HEAD: No signs of trauma, normocephalic, atraumatic EYES: PERRLA, EOMI, sclera anicteric, conjunctiva clear ENT: Auricles normal inspection, hearing grossly normal, nares patent, oropharynx clear without exudates. Moist mucosa NECK: Normal ROM, supple, LUNGS: +Diffusely tight sounding. HEART: Regular rate and rhythm, normal S1 and S2, no murmurs, rubs or gallops, peripheral pulses normal and equal bilaterally. ABDOMEN: Soft, nontender, normoactive bowel sounds. No guarding, no rebound. No masses EXTREMITIES: Normal inspection, Normal range of motion, no edema. No clubbing or cyanosis. NEUROLOGICAL: Cranial nerves II through XII grossly intact. no focal sensori motor deficits SKIN: Warm, Dry, Sepsis Work up: CBC , CMP Potter cx CXR , chest CTA Head CT PT, PTT , coagulation , type and screen EKG 2 IV line Childers cath 1 L bolus NS LA Cardiac profile BNP 10/21/17 02:59 10/21/17 03:01 10/21/17 03:25 CBC, BMP 10/21/17 02:30 10/21/17 02:30 CBC,CMP WBC 1.1 K/mm3 (4.0-10.0) L* D 10/21/17 02:30 RBC 3.74 M/mm3 (3.60-5.2) 10/21/17 02:30 Hgb 11.0 GM/dL (10.7-15.3) D 10/21/17 02:30 Hct 32.9 % (32.4-45.2) 10/21/17 02:30 MCV 87.9 fl (80-96) 10/21/17 02:30 MCH 29.4 pg (25.7-33.7) 10/21/17 02:30 MCHC 33.4 g/dl (32.0-36.0) 10/21/17 02:30 RDW 17.1 % (11.6-15.6) H 10/21/17 02:30 Plt Count 174 K/MM3 (134-434) D 10/21/17 02:30 MPV 10.1 fl (7.5-11.1) D 10/21/17 02:30 Neutrophils % No Result Required. 10/21/17 02:30 Lymphocytes % No Result Required. 10/21/17 02:30 Sodium 127 mmol/L (136-145) L 10/21/17 02:30 Potassium 4.4 mmol/L (3.5-5.1) 10/21/17 02:30 Chloride 90 mmol/L (98-107) L 10/21/17 02:30 Carbon Dioxide 19 mmol/L (21-32) L 10/21/17 02:30 Anion Gap 18 (8-16) H 10/21/17 02:30 BUN 80 mg/dL (7-18) H D 10/21/17 02:30 Creatinine 6.4 mg/dL (0.55-1.02) H 10/21/17 02:30 Creat Clearance w eGFR 6.45 (>60) 10/21/17 02:30 POC Glucometer 248.50789 UNITS (80-120) 10/21/17 02:26 Random Glucose 241 mg/dL (74-106) H 10/21/17 02:30 Lactic Acid 3.1 mmol/L (0.0-2.0) H* 10/21/17 02:30 Calcium 7.7 mg/dL (8.5-10.1) L 10/21/17 02:30 Total Bilirubin 1.3 mg/dL (0.2-1.0) H D 10/21/17 02:30 AST 84 U/L (15-37) H 10/21/17 02:30 ALT 44 U/L (12-78) 10/21/17 02:30 Creatine Kinase 64 IU/L (26-192) 10/21/17 02:30 Troponin I 0.08 ng/ml (0.00-0.05) H 10/21/17 02:30 B-Natriuretic Peptide 47886.06 pg/ml (5-125) H 10/21/17 02:30 Total Protein 6.4 g/dl (6.4-8.2) 10/21/17 02:30 Albumin 2.1 g/dl (3.4-5.0) L 10/21/17 02:30 10/21/17 05:45 pt recieve vanco/zosyn in the setting of septic chock LA 4.3 and BP drop to 53 systolic BP drop to 60 systolic 3 L IV fluids was given to her Dopamin IV @ rate of 10 was started improved her bP but HR dun high to 150 ( afib on monitor ) stop Dopamin and start her on levofed through port in her chest BP has improved pt is more awake and responsive 10/21/17 06:21 Blood pressure has improved to 168/86, pt is more awake and more responsive pt is admitted to ICU , but no bed available yet pt is admitted under services. Past History - Past Medical History Allergies/Adverse Reactions: Allergies Allergy/AdvReac Type Severity Reaction Status Date / Time hydromorphone HCl Allergy Verified 10/21/17 02:43 [From Dilaudid] oxycodone HCl [From Percocet] Allergy Verified 10/21/17 02:43 Home Medications: Ambulatory Orders Albuterol Sulfate [Proair Hfa -] 1 - 2 inh PO PRN PRN 10/07/14 Clopidogrel Bisulfate [Plavix -] 75 mg PO DAILY 10/07/14 Furosemide [Lasix -] 20 mg PO DAILY 10/07/14 Rosuvastatin Calcium [Crestor] 20 mg PO HS 10/07/14 Tiotropium [place] [Spiriva -] 1 inh IH DAILY 10/07/14 Budesonide/Formeterol Fumarate [SYMBICORT 160/4.5mcg -] 1 puff IN PRN 07/05/17 Losartan Potassium 25 mg PO DAILY 07/05/17 Montelukast Sodium [Singulair] 10 mg PO DAILY 07/05/17 Pegfilgrastim [Neulasta] 6 mg SQ ASDIR 10/21/17 predniSONE [Deltasone -] 50 mg PO ASDIR 10/21/17 Cancer: Yes (lung) Cardiac Disorders: Yes (cad,stentsx2,mvr) CVA: Yes (1981) COPD: Yes CHF: Yes HTN: Yes Hypercholesterolemia: Yes - Surgical History Cardiac Surgery: Yes (stentx2) Orthopedic Surgery: Yes ([place] hip replace) - Suicide/Smoking/Psychosocial Hx Smoking History: Former smoker Have you smoked in the past 12 months: No If you are a former smoker, when did you quit?: 15 YEARS AGO Hx Alcohol Use: No Drug/Substance Use Hx: No Substance Use Type: None Hx Substance Use Treatment: No ED Treatment Course - LABORATORY CBC & Chemistry Diagram: 10/21/17 11:32 10/21/17 13:30 *DC/Admit/Observation/Transfer Diagnosis at time of Disposition: Sepsis - Septicemia - Discharge Dispostion Disposition: - Referrals - Patient Instructions - Post Discharge Activity
[2017-10-21 02:30] VITALS: BMI 31.1
[2017-10-21 02:45] LABS: HEMATOCRIT 32.9 % (32.4-45.2); MCH 29.4 pg (25.7-33.7); MCHC 33.4 g/dl (32.0-36.0); MEAN CELL VOLUME 87.9 fl (80-96); MEAN PLT VOLUME 10.1 fl (7.5-11.1); PLATELET COUNT 174 K/MM3 (134-434); RBC 3.74 M/mm3 (3.60-5.2); RDW 17.1 % (11.6-15.6)
[2017-10-21 02:52] LABS: WHITE BLOOD COUNT 1.1 K/mm3 (4.0-10.0)
[2017-10-21] MEDS ORDERED: SODIUM CHLORIDE 1,000 ML IV STA ×2 (02:52→03:32)
--- NOTE | 2017-10-21 02:52 | PDOC ---
Attending Attestation - Resident Resident Name: Chava Tapia - ED Attending Attestation I have performed the following: I have examined & evaluated the patient, The case was reviewed & discussed with the resident, I agree w/resident's findings & plan, Exceptions are as noted - HPI HPI: 10/21/17 03:15 "Patient is a 67 year old female with a significant past medical history of Lung CA (on chemo), COPD and CAD s/p PCI LAD who was brought by EMS to the ED for weakness that began 4 days ago. As per patient's daughter, patient received a Neulasta injection last by her PCP. She reports patient began to complain of feeling unwell shortly after receiving the injection, and she believed this to be a side effect of Neulasta. Patient's daughter reports she began to experience weakness and episodes of SOB starting 4 days ago. As per patient's daughter, the patient began to become very weak and lethargic, prompting her to bring the patient into the ED for further evaluation. Pt has not had any fevers at home. She has not complained of chest pain. Pt is on 24 hr home O2 (2L) with a baseline O2 sat of 90. Denies chest pain. Denies nausea, vomiting. Denies contact with sick individuals , out of state travelling. Denies diarrhea, constipation, dysuria, hematuria. Denies any other symptoms. Allergies: acetaminophen, hydromorphone, oxycodone Social history: Lives with daughter, Former smoker (Last 15 years). No alcohol. No illicit drugs. Surgical history: Cardiac stent x2, bilateral hip replace PMD: Not on Staff. " - Physicial Exam PE: 10/21/17 03:18 "GENERAL: lethargic but arousable, in no acute distress HEAD: No signs of trauma EYES: PERRLA, EOMI, sclera anicteric, conjunctiva clear ENT: Auricles normal inspection, hearing grossly normal, nares patent, oropharynx clear without exudates. Moist mucosa NECK: Nontender, no stepoffs, Normal ROM, supple, no lymphadenopathy, JVD, or masses LUNGS: Breath sounds equal, clear to auscultation bilaterally. No wheezes, and no crackles HEART: Regular rate and rhythm, normal S1 and S2, no murmurs, rubs or gallops ABDOMEN: Soft, nontender, normoactive bowel sounds. No guarding, no rebound. No masses EXTREMITIES: Normal range of motion, no edema. No clubbing or cyanosis. No cords, erythema, or tenderness NEUROLOGICAL: Cranial nerves II through XII intact. 5/5 strength and sensation in all extremities, Normal speech, normal gait, normal cerebellar function SKIN: Warm, Dry, normal turgor, no rashes or lesions noted. " - Critical Care Time Total Critical Care Time: 240 Critical Care Statement: The care of this patient involved high complexity decision making to prevent further life threatening deterioration of the patient 's condition and/or to evaluate & treat vital organ system(s) failure or risk of failure. - Medical Decision Making 10/21/17 03:19 67 F with lung CA on chemotherapy presenting with generalized weakness and decreased O2 sat. Pt also found to be hypothermic in ED, concerning for sepsis. - Labs, cultures - CXR, UA - IVF, abx Discussed with pt's daughter goals of care - pt is confirmed full code. 10/21/17 03:23 Labs notable for WBC 1.1, neutrophil% pending - Pt covered with vanc/zosyn for presumed neutropenia 2/2 chemo Pt also with Cr 6, up from 1.1 a week ago. - Childers inserted with no urine return 10/21/17 03:37 Repeat BP 60/40. Pt receiving 2L bolus Will reassess BP after and consider central line placement for pressors 10/21/17 04:39 Pt received 2L, still hypotensive to 60s systolic. At this point, pt was started on peripheral dopamine @ 15 mcg/kg/min After 20 min on dopamine, pressure improved to 90s systolic, but HR suddenly jumped to 150s, irregular on monitor (possible afib RVR). Dopamine stopped. Pt's port accessed and levophed started @ 10mcg/min BP improved to 100 systolic. Pt at this point became more alert, conversant. 3L NS total given. Spoke with ICU TANK CHARGER Tamie, pt accepted, though no beds available at this time. 10/21/17 05:[address] Raymundo. 10/21/17 07:30 Pt signed out to Dr. Phelps at 7AM, pending ICU bed availability. Pt critically ill, now on levophed gtt @ 30mcg/min. Pt awake, conversant and protecting airway though intermittently lethargic and difficult to arouse.
[2017-10-21 02:58] LABS: INR 1.27 (0.82-1.09); PROTHROMBIN TIME (PATIENT) 14.4 SEC (9.98-11.88)
[2017-10-21 03:00] LABS: ACTIVATED PTT 28.7 SECONDS (26.9-34.4)
[2017-10-21] MEDS ORDERED: PIPERACILLIN/TAZOB 4.5 GM 4.5 GM/100 ML BAG IVPB ONE ×2 (03:12→03:36)
[2017-10-21] MEDS ORDERED: VANCOMYCIN 1 GRAM (PRE-DOCKED) 1,000 MG/250 ML BAG IVPB ONE (03:12)
[2017-10-21 03:15] LABS: ALBUMIN 2.1 g/dl (3.4-5.0); ANION GAP 18 (8-16); BILIRUBIN,TOTAL 1.3 mg/dL (0.2-1.0); BLOOD UREA NITROGEN 80 mg/dL (7-18); CALCIUM 7.7 mg/dL (8.5-10.1); CHLORIDE 90 mmol/L (98-107); CO2 19 mmol/L (21-32); CREATININE 6.4 mg/dL (0.55-1.02); GLUCOSE,RANDOM 241 mg/dL (74-106); POTASSIUM 4.4 mmol/L (3.5-5.1); SGOT/AST 84 U/L (15-37); SGPT/ALT 44 U/L (12-78); SODIUM 127 mmol/L (136-145); TOT PROT 6.4 g/dl (6.4-8.2)
[2017-10-21 03:16] LABS: N-TERMINAL BNP 18753.06 pg/ml (5-125)
[2017-10-21 03:24] LABS: ALK PHOS 125 U/L (45-117)
[2017-10-21] MEDS ORDERED: SODIUM CHLORIDE 500 ML IV STA (03:24)
[2017-10-21 03:29] LABS: VENOUS PH 7.19 (7.32-7.42)
[2017-10-21] MEDS ORDERED: SODIUM CHLORIDE 2,000 ML IV STA (03:38)
[2017-10-21] MEDS ORDERED: DOPAMINE 400 MG/D5W - 400,000 MCG/250 ML INFUS.BAG IVPB ONE ×2 (03:48→03:55)
[2017-10-21 03:59] LABS: PLATELET ESTIMATE ADEQUATE
[2017-10-21] MEDS ORDERED: VANCOMYCIN 1,250 MG in DEXTROSE 5%-WATER - 250 ML IVPB ONE (04:10)
[2017-10-21] MEDS ORDERED: NOREPINEPHRINE BITARTRATE 4 MG/4 ML ML IV ONE ×5 (04:24→14:45)
[2017-10-21] MEDS ORDERED: NOREPINEPHRINE BITARTRATE 4,000 MCG in DEXTROSE 5%-WATER - 496 ML IV ONE (04:45)
[2017-10-21] MEDS ORDERED: ALBUTEROL SO4 2.5/IPRATROPIUM 0.5 INH SOL 3 ML VIAL.NEB. NEB ONE (05:35)
[2017-10-21] MEDS: ALBUTEROL SO4 2.5/IPRATROPIUM 0.5 INH SOL 3 ML VIAL.NEB. NEB SCH ×2 (05:39→06:06)
--- NOTE | 2017-10-21 07:46 | PDOC ---
*Physical Exam - Vital Signs Last Vital Signs Temp Pulse Resp BP Pulse Ox 97.7 F 162 H 30 H 73/41 95 10/21/17 07:05 10/21/17 07:45 10/21/17 07:05 10/21/17 07:45 10/21/17 06:22 ED Treatment Course - LABORATORY CBC & Chemistry Diagram: 10/21/17 11:32 10/21/17 13:30 - ADDITIONAL ORDERS Additional order review: Laboratory Results 10/21/17 10/21/17 10/21/17 04:50 04:50 02:30 PT with INR INR PTT (Actin FS) VBG pH POC VBG pCO2 POC VBG pO2 Mixed VBG HCO3 Sodium Potassium Chloride Carbon Dioxide Anion Gap BUN Creatinine Creat Clearance w eGFR POC Glucometer Random Glucose Lactic Acid 2.0 Calcium Total Bilirubin AST ALT Alkaline Phosphatase Creatine Kinase Troponin I 0.06 H B-Natriuretic Peptide Total Protein Albumin TSH Blood Type B POSITIVE Antibody Screen Negative 10/21/17 10/21/17 10/21/17 02:30 02:30 02:30 PT with INR INR PTT (Actin FS) VBG pH 7.19 L* POC VBG pCO2 60.0 H POC VBG pO2 28.0 Mixed VBG HCO3 22.9 Sodium 127 L Potassium 4.4 Chloride 90 L Carbon Dioxide 19 L Anion Gap 18 H BUN 80 H D Creatinine 6.4 H Creat Clearance w eGFR 6.45 POC Glucometer Random Glucose 241 H Lactic Acid 3.1 H* Calcium 7.7 L Total Bilirubin 1.3 H D AST 84 H ALT 44 Alkaline Phosphatase 125 H Creatine Kinase Troponin I B-Natriuretic Peptide Total Protein 6.4 Albumin 2.1 L TSH 0.43 Blood Type Antibody Screen 10/21/17 10/21/17 10/21/17 02:30 02:30 02:26 PT with INR 14.40 H INR 1.27 H PTT (Actin FS) 28.7 D VBG pH POC VBG pCO2 POC VBG pO2 Mixed VBG HCO3 Sodium Potassium Chloride Carbon Dioxide Anion Gap BUN Creatinine Creat Clearance w eGFR POC Glucometer 248.61833 Random Glucose Lactic Acid Calcium Total Bilirubin AST ALT Alkaline Phosphatase Creatine Kinase 64 Troponin I 0.08 H B-Natriuretic Peptide 36700.06 H Total Protein Albumin TSH Blood Type Antibody Screen 10/21/17 10/21/17 02:30 02:26 RBC 3.74 MCV 87.9 MCHC 33.4 RDW 17.1 H MPV 10.1 D Neutrophils % No Result Required. Lymphocytes % No Result Required. POC Glucometer 248.42727 - Medications Given in the ED: ED Medications Discontinued Medications Generic Name Dose Route Start Last Admin Trade Name Cecil PRN Reason Stop Dose Admin Albuterol/Ipratropium 1 amp 10/21/17 05:30 10/21/17 06:06 Duoneb - NEB 10/21/17 06:16 1 amp Q15M NICK Administration Sodium Chloride 1,000 mls @ 1,000 mls/hr 10/21/17 02:52 10/21/17 03:09 Normal Saline - IV 10/21/17 03:51 1,000 mls/hr ASDIR STA Administration Piperacillin/Tazobactam/Dextrose 4.5 gm in 100 mls @ 200 mls/hr 10/21/17 03: 12 10/21/17 03:36 Zosyn 4.5gm Ivpb (Premix) IVPB 10/21/17 03:41 200 mls/hr ONCE ONE Administration Protocol Sodium Chloride 500 mls @ 500 mls/hr 10/21/17 03:24 10/21/17 03:36 Normal Saline - IV 10/21/17 04:23 500 mls/hr ASDIR STA Administration Sodium Chloride 1,000 mls @ 1,000 mls/hr 10/21/17 03:32 10/21/17 03:36 Normal Saline - IV 10/21/17 04:31 1,000 mls/hr ASDIR STA Administration Sodium Chloride 2,000 mls @ 500 mls/hr 10/21/17 03:38 10/21/17 03:43 Normal Saline - IV 10/21/17 07:23 500 mls/hr ASDIR STA Administration Vancomycin HCl 1,250 mg/ 250 mls @ 250 mls/hr 10/21/17 04:10 10/21/17 05:11 Dextrose IVPB 10/21/17 05:09 250 mls/hr ONCE ONE Administration Protocol Vancomycin HCl 1,000 mg 10/21/17 03:12 10/21/17 05:00 Vancomycin (Pre-Docked) IVPB 10/21/17 03:13 Not Given ONCE ONE Protocol Medical Decision Making - Medical Decision Making 10/21/17 07:46 The patient was signed out to me by night team, Dr. Tapia. The patient is a 67F who presented in septic shock. Current BP readings are innacurate. Consent signed for arterial line. Pt is being covered with broad spectrum abx and on 4th L of NS. Currently receiving levophed through chemo port. 10/21/17 10:54 R arterial line placed and R IJ central line placed. Pt tolerated both procedures well. Both procedures had consent signed and performed in a sterile fashion. Attending has ordered medications including steroids and vasopressin. Pressors are being titrated to MAP of 65. Pt being closely monitored. 10/21/17 12:39 Pt is having agonal breathing and has been having worsened labor breathing with worsening lung sounds. I intubated the patient and the patient is stable. Will order versed and fentanyl for post-intubation sedation. 10/21/17 13:50 The patient has become hypoxic post intubation, suctioned, and now is having a difficulty with oxygenation. She is also bradycardic and has become hypotensive again. Will add epinephrine and monitor closely. 10/21/17 14:42 Pt is maxed out on 3 pressors (levophed, vasopressin, neosynephrine) and epinephrine is being titrated. ET tubed pulled back 2 cm to placement of 20 at the lip. *DC/Admit/Observation/Transfer Diagnosis at time of Disposition: Sepsis - Septicemia - Discharge Dispostion Disposition: - Referrals - Patient Instructions - Post Discharge Activity Procedures - Central Line Central Line Lumen: triple Central Line Position: internal jugular (R) Anesthesia: 1% Lidocaine Amount of anesthesia (ccs): 2 Complications: none Post Central Line Insertion: sutured, good blood return - Intubation Intubation Method: orotracheal Blade used: Mac Tube Size (Fr): 7.5 Medications: Ketamine Tube position confirmed by: Chest x-ray Breath Sounds after Intubation: equal Intubation Complications: no complications Post Intubation Xray: Yes - Additional Procedures Additional Procedures: other (arterial line; R sided)
[2017-10-21] MEDS ORDERED: PHENYLEPHRINE HCL 10 MG/1 ML SINGLE DOSE VIAL IVPB ONE ×2 (08:15→08:35)
[2017-10-21] MEDS ORDERED: PHENYLEPHRINE HCL 10,000 MCG in DEXTROSE 5%-WATER - 499 ML IV SCH ×2 (08:30→09:31)
[2017-10-21] MEDS ORDERED: PHENYLEPHRINE HCL 10 MG/1 ML SINGLE DOSE VIAL ONE (09:15)
--- NOTE | 2017-10-21 09:33 | PDOC ---
*Physical Exam - Vital Signs Last Vital Signs Temp Pulse Resp BP Pulse Ox 97.7 F 158 H 18 42/30 97 10/21/17 07:05 10/21/17 09:45 10/21/17 09:29 10/21/17 09:45 10/21/17 09:29 <César Segundo - Last Filed: 10/21/17 13:33> - Vital Signs Last Vital Signs Temp Pulse Resp BP Pulse Ox 97.7 F 168 H 30 H 60/29 95 10/21/17 07:05 10/21/17 09:13 10/21/17 07:05 10/21/17 09:13 10/21/17 06:22 <Zion Phelps - Last Filed: 10/26/17 06:24> ED Treatment Course - LABORATORY CBC & Chemistry Diagram: 10/21/17 11:32 10/21/17 02:30 - ADDITIONAL ORDERS Additional order review: Laboratory Results 10/21/17 10/21/17 10/21/17 04:50 04:50 02:30 PT with INR INR PTT (Actin FS) VBG pH POC VBG pCO2 POC VBG pO2 Mixed VBG HCO3 Sodium Potassium Chloride Carbon Dioxide Anion Gap BUN Creatinine Creat Clearance w eGFR POC Glucometer Random Glucose Lactic Acid 2.0 Calcium Total Bilirubin AST ALT Alkaline Phosphatase Creatine Kinase Troponin I 0.06 H B-Natriuretic Peptide Total Protein Albumin TSH Blood Type B POSITIVE Antibody Screen Negative 10/21/17 10/21/17 10/21/17 02:30 02:30 02:30 PT with INR INR PTT (Actin FS) VBG pH 7.19 L* POC VBG pCO2 60.0 H POC VBG pO2 28.0 Mixed VBG HCO3 22.9 Sodium 127 L Potassium 4.4 Chloride 90 L Carbon Dioxide 19 L Anion Gap 18 H BUN 80 H D Creatinine 6.4 H Creat Clearance w eGFR 6.45 POC Glucometer Random Glucose 241 H Lactic Acid 3.1 H* Calcium 7.7 L Total Bilirubin 1.3 H D AST 84 H ALT 44 Alkaline Phosphatase 125 H Creatine Kinase Troponin I B-Natriuretic Peptide Total Protein 6.4 Albumin 2.1 L TSH 0.43 Blood Type Antibody Screen 10/21/17 10/21/17 10/21/17 02:30 02:30 02:26 PT with INR 14.40 H INR 1.27 H PTT (Actin FS) 28.7 D VBG pH POC VBG pCO2 POC VBG pO2 Mixed VBG HCO3 Sodium Potassium Chloride Carbon Dioxide Anion Gap BUN Creatinine Creat Clearance w eGFR POC Glucometer [phone] Random Glucose Lactic Acid Calcium Total Bilirubin AST ALT Alkaline Phosphatase Creatine Kinase 64 Troponin I 0.08 H B-Natriuretic Peptide 81021.06 H Total Protein Albumin TSH Blood Type Antibody Screen 10/21/17 10/21/17 02:30 02:26 RBC 3.74 MCV 87.9 MCHC 33.4 RDW 17.1 H MPV 10.1 D Neutrophils % No Result Required. Lymphocytes % No Result Required. POC Glucometer 248.53329 - Medications Given in the ED: ED Medications Discontinued Medications Generic Name Dose Route Start Last Admin Trade Name Freq PRN Reason Stop Dose Admin Albuterol/Ipratropium 1 amp 10/21/17 05:30 10/21/17 06:06 Duoneb - NEB 10/21/17 06:16 1 amp Q15M NICK Administration Hydrocortisone Sodium Succinate 100 mg 10/21/17 09:35 10/21/17 09:40 Solu-Cortef - IVPUSH 10/21/17 09:36 100 mg ONCE ONE Administration Sodium Chloride 1,000 mls @ 1,000 mls/hr 10/21/17 02:52 10/21/17 03:09 Normal Saline - IV 10/21/17 03:51 1,000 mls/hr ASDIR STA Administration Piperacillin/Tazobactam/Dextrose 4.5 gm in 100 mls @ 200 mls/hr 10/21/17 03: 12 10/21/17 03:36 Zosyn 4.5gm Ivpb (Premix) IVPB 10/21/17 03:41 200 mls/hr ONCE ONE Administration Protocol Sodium Chloride 500 mls @ 500 mls/hr 10/21/17 03:24 10/21/17 03:36 Normal Saline - IV 10/21/17 04:23 500 mls/hr ASDIR STA Administration Sodium Chloride 1,000 mls @ 1,000 mls/hr 10/21/17 03:32 10/21/17 03:36 Normal Saline - IV 10/21/17 04:31 1,000 mls/hr ASDIR STA Administration Sodium Chloride 2,000 mls @ 500 mls/hr 10/21/17 03:38 10/21/17 03:43 Normal Saline - IV 10/21/17 07:23 500 mls/hr ASDIR STA Administration Vancomycin HCl 1,250 mg/ 250 mls @ 250 mls/hr 10/21/17 04:10 10/21/17 05:11 Dextrose IVPB 10/21/17 05:09 250 mls/hr ONCE ONE Administration Protocol Phenylephrine HCl 10,000 mcg/ 500 mls @ 150 mls/hr 10/21/17 08:30 10/21/17 09 :25 Dextrose IV 100 mcg/min TITR NICK 300 mls/hr Protocol Infusion 50 MCG/MIN Phenylephrine HCl 50 mcg 10/21/17 08:15 10/21/17 09:04 Wil-Synephrine - IVPB 10/21/17 08:16 Not Given ONCE ONE Phenylephrine HCl 80 mcg 10/21/17 08:35 10/21/17 09:25 Wil-Synephrine - IVPB 10/21/17 08:36 80 mcg NOW ONE Administration Vancomycin HCl 1,000 mg 10/21/17 03:12 10/21/17 05:00 Vancomycin (Pre-Docked) IVPB 10/21/17 03:13 Not Given ONCE ONE Protocol <César Segundo - Last Filed: 10/21/17 13:33> - LABORATORY CBC & Chemistry Diagram: 10/21/17 11:32 10/21/17 13:30 - ADDITIONAL ORDERS Additional order review: Laboratory Results 10/21/17 10/21/17 10/21/17 04:50 04:50 02:30 PT with INR INR PTT (Actin FS) VBG pH POC VBG pCO2 POC VBG pO2 Mixed VBG HCO3 Sodium Potassium Chloride Carbon Dioxide Anion Gap BUN Creatinine Creat Clearance w eGFR POC Glucometer Random Glucose Lactic Acid 2.0 Calcium Total Bilirubin AST ALT Alkaline Phosphatase Creatine Kinase Troponin I 0.06 H B-Natriuretic Peptide Total Protein Albumin TSH Blood Type B POSITIVE Antibody Screen Negative 10/21/17 10/21/17 10/21/17 02:30 02:30 02:30 PT with INR INR PTT (Actin FS) VBG pH 7.19 L* POC VBG pCO2 60.0 H POC VBG pO2 28.0 Mixed VBG HCO3 22.9 Sodium 127 L Potassium 4.4 Chloride 90 L Carbon Dioxide 19 L Anion Gap 18 H BUN 80 H D Creatinine 6.4 H Creat Clearance w eGFR 6.45 POC Glucometer Random Glucose 241 H Lactic Acid 3.1 H* Calcium 7.7 L Total Bilirubin 1.3 H D AST 84 H ALT 44 Alkaline Phosphatase 125 H Creatine Kinase Troponin I B-Natriuretic Peptide Total Protein 6.4 Albumin 2.1 L TSH 0.43 Blood Type Antibody Screen 10/21/17 10/21/17 10/21/17 02:30 02:30 02:26 PT with INR 14.40 H INR 1.27 H PTT (Actin FS) 28.7 D VBG pH POC VBG pCO2 POC VBG pO2 Mixed VBG HCO3 Sodium Potassium Chloride Carbon Dioxide Anion Gap BUN Creatinine Creat Clearance w eGFR POC Glucometer [phone] Random Glucose Lactic Acid Calcium Total Bilirubin AST ALT Alkaline Phosphatase Creatine Kinase 64 Troponin I 0.08 H B-Natriuretic Peptide 08054.06 H Total Protein Albumin TSH Blood Type Antibody Screen 10/21/17 10/21/17 02:30 02:26 RBC 3.74 MCV 87.9 MCHC 33.4 RDW 17.1 H MPV 10.1 D Neutrophils % No Result Required. Lymphocytes % No Result Required. POC Glucometer 248.77175 - Medications Given in the ED: ED Medications Discontinued Medications Generic Name Dose Route Start Last Admin Trade Name Freq PRN Reason Stop Dose Admin Albuterol/Ipratropium 1 amp 10/21/17 05:30 10/21/17 06:06 Duoneb - NEB 10/21/17 06:16 1 amp Q15M NICK Administration Sodium Chloride 1,000 mls @ 1,000 mls/hr 10/21/17 02:52 10/21/17 03:09 Normal Saline - IV 10/21/17 03:51 1,000 mls/hr ASDIR STA Administration Piperacillin/Tazobactam/Dextrose 4.5 gm in 100 mls @ 200 mls/hr 10/21/17 03: 12 10/21/17 03:36 Zosyn 4.5gm Ivpb (Premix) IVPB 10/21/17 03:41 200 mls/hr ONCE ONE Administration Protocol Sodium Chloride 500 mls @ 500 mls/hr 10/21/17 03:24 10/21/17 03:36 Normal Saline - IV 10/21/17 04:23 500 mls/hr ASDIR STA Administration Sodium Chloride 1,000 mls @ 1,000 mls/hr 10/21/17 03:32 10/21/17 03:36 Normal Saline - IV 10/21/17 04:31 1,000 mls/hr ASDIR STA Administration Sodium Chloride 2,000 mls @ 500 mls/hr 10/21/17 03:38 10/21/17 03:43 Normal Saline - IV 10/21/17 07:23 500 mls/hr ASDIR STA Administration Vancomycin HCl 1,250 mg/ 250 mls @ 250 mls/hr 10/21/17 04:10 10/21/17 05:11 Dextrose IVPB 10/21/17 05:09 250 mls/hr ONCE ONE Administration Protocol Phenylephrine HCl 50 mcg 10/21/17 08:15 10/21/17 09:04 Wil-Synephrine - IVPB 10/21/17 08:16 Not Given ONCE ONE Vancomycin HCl 1,000 mg 10/21/17 03:12 10/21/17 05:00 Vancomycin (Pre-Docked) IVPB 10/21/17 03:13 Not Given ONCE ONE Protocol <Zion Phelps - Last Filed: 10/26/17 06:24> Medical Decision Making - Medical Decision Making 10/21/17 09:[address] Raymundo at 9:15 am. Pending call back. Second call placed to Dr. Raymundo at 9:45 am. Pending call back. Third call placed to Dr. Raymundo at 10:[address] Raymundo returned the call at 11: 04 am. Case discussed. Call placed to ICU at 11 am. Case discussed with Dr. Josias Bautista. <César Segundo - Last Filed: 10/21/17 13:33> - Critical Care Time Total Critical Care Time (minutes): 240 Critical Care Statement: The care of this patient involved high complexity decision making to prevent further life threatening deterioration of the patient 's condition and/or to evaluate & treat vital organ system(s) failure or risk of failure. - Medical Decision Making 10/21/17 09:16 Care received at 0700 Briefly, hx lung ca on chemo presents to ED in septic shock, likely 2/2 PNA Currently, pt hypotensive, maxed out on levophed (32mcg) with BP in the 50s systolic A-line placed, consistent with cuff pressures Will be starting wil-synephrine gtt peripherally for further BP support Currently consenting for central line to add vasopressin, if needed Pt receives steroids weekly with chemo, given possible suppression, hydrocortisone 100mg given. 4th liter of LR is going in No UOP thus far despite solitario switched out POCUS with no pericardial effusion, RV dilation, or flattened IV septum No ICU beds, Dr. Raymundo has been paged to update on critical status, awaiting a call back 10/21/17 09:46 Wil increased to 150mcg/min Levophed at 32mcg Awaiting CVC kit, no kits currently in ED. Once IJ in, will add vaso Holding off on epi given HR 160s in AF w RVR. 10/21/17 11:00 ABG ordered, and sent. Our blood gas machine is down, specimen sent to [facility] , will be significantly delayed per the lab. 10/21/17 12:23 R IJ CVC placed with US guidance under sterile conditions. Vasopressin added Good response with MAPs now in 60s/70s Pt began to be agitated, with gurgling BS Likely 2/2 pulm edema from fluid resuscitation with concurrent PNA Dr. Bautista and Dr. Raymundo at the bedside Using ketamine and mony, pt intubated, +condensation in tube, color change and b/ l rhoncherous BS CXR ordered for placement BP stable post intubation Pt ordered for amiodarone by Dr. Bautista for RVR hgb 6.6, pRBC ordered Pt awaiting ICU bed 10/21/17 13:39 BP dropped to 60s/30s on ash with good wave form Wil increased to 200mcg/min Pt appears mottled on exam O2 sats dropping, now difficult to get a sat as pt is clamped down peripherally Respiratory at bedside, suctioned with minimal output. Pt bagged but no detectable O2 sat ABG from this AM still pending due to machine down (being run currently) Epi ordered for further BP support Tube slightly deep on XR, pulled back 1cm Discussed with Dr. Bautista who agrees with epi gtt 10/21/17 14:40 Epi on board BP up to 70s/40s Tube was pulled back 2cm O2 sat 93% with good waveform CMP returned with hyponatremia, creatinine 5.5, lactate 11, hyperglycemic All consistent with septic shock Dr. Bautista at bedside Recommends renally dosing repeat Zosyn to 2.5 Recommends holding off [place] 2/2 public safety dispatcher 5.5 ICU bed available, report being called by RN 10/21/17 15:24 Pt coded at 14:47 Dr. Bautista and myself at the bedside CPR was initiated immediately. Pt in asystole in btwn checks After epi x3, calcium, and 3 amps of bicarp, pt with ROSC. Bicarb drip initiated @ 150mg/hr (ABG from [facility] [place] returned with pH 7.08) Approx 7 minutes of down time Family informed throughout Pt with strong carotid pulse, in sinus, rate 80s-90s. Transported up to ICU by ED nurse, Dr. Jaffe and Dr. Ely <Zion Phelps - Last Filed: 10/26/17 06:24> *DC/Admit/Observation/Transfer <César Segundo - Last Filed: 10/21/17 13:33> <Zion Phelps - Last Filed: 10/26/17 06:24> Diagnosis at time of Disposition: Sepsis - Septicemia - Discharge Dispostion Disposition:
[2017-10-21] MEDS ORDERED: HYDROCORTISONE SOD SUCCINATE 100 MG/2 ML VIAL IVPUSH ONE (09:35)
[2017-10-21] MEDS ORDERED: HYDROCORTISONE SOD SUCCINATE 2 ML ONE (09:41)
[2017-10-21] MEDS ORDERED: VASOPRESSIN 50 UNITS in SODIUM CHLORIDE 97.5 ML IVPB SCH (09:45)
[2017-10-21] MEDS ORDERED: VASOPRESSIN 20 UNITS/ML VIAL IV ONE (10:17)
[2017-10-21] MEDS ORDERED: LACTATED RINGERS SOLUTION 1000 ML INFUS.BAG IV ONE (10:41)
[2017-10-21] MEDS ORDERED: LACTATED RINGERS SOLUTION 1,000 ML/1,000 ML INFUS.BAG IV SCH ×2 (11:15→12:38)
[2017-10-21 11:57] LABS: HEMATOCRIT 24.6 % (32.4-45.2); MCH 29.5 pg (25.7-33.7); MCHC 25.2 g/dl (32.0-36.0); MEAN CELL VOLUME 116.9 fl (80-96); MEAN PLT VOLUME 9.7 fl (7.5-11.1); PLATELET COUNT 107 K/MM3 (134-434)
[2017-10-21] MEDS ORDERED: RAPID SEQUENCE INTUBATION KIT NR ONE (12:02)
[2017-10-21 12:03] LABS: HEMOGLOBIN 6.2 GM/dL (10.7-15.3); WHITE BLOOD COUNT 1.4 K/mm3 (4.0-10.0)
[2017-10-21] MEDS ORDERED: KETAMINE HCL 200 MG/20 ML VIAL ONE (12:04)
[2017-10-21] MEDS: AMIODARONE HCL 150 MG/3 ML VIAL IVPUSH ONE (12:05)
[2017-10-21] MEDS ORDERED: AMIODARONE HCL 150 MG/3 ML VIAL ONE (12:08)
[2017-10-21] MEDS ORDERED: fentaNYL CITRATE 250 MCG/5 ML VIAL ONE (12:19)
--- NOTE | 2017-10-21 12:31 | HP ---
Admitting History and Physical - Admission History of Present Illness: This is a 67 year old woman with PMhx of of NSCLC, HTN, HLD, CAD, CHF, COPD on home O2. Pt received chemotx about 2 weeks and had neupogen on (10/17/17). She presented from home with AMS and generalzied weakness. As per pt's daughter( pt is in respiratory distress and cannot give history) pt began feeling ill on w/ feelings of weakness and generalized bodyaches. This continued for the next 3 days until pt was brought to ER by her daughter. In the ER pt initialy found to have BP 115/100 pulse 74 and tmax 94.3 and was started on iv antibxs for sepsis. Pt became hypotensive/tachycardia/tachypneic and ARF. Pt was given IVF and started on IV pressors but was in septic shock and was intubated. - Past Medical History Cardiovascular: Yes: Aortic Insufficiency, CAD, HTN, Hyperlipdemia, Mitral Insufficiency Pulmonary: Yes: COPD Heme/Onc: Yes: Cancer (NSCLC) Musculoskeletal: Yes: Osteoarthritis - Past Surgical History Past Surgical History: Yes: Joint Replacement - Smoking History Smoking history: Former smoker Have you smoked in the past 12 months: No If you are a former smoker, when did you quit?: 15 YEARS AGO - Alcohol/Substance Use Hx Alcohol Use: No History of Substance Use: reports: None - Social History ADL: Independent Occupation: retired History of Recent Travel: No Home Medications - Allergies Allergies/Adverse Reactions: Allergies Allergy/AdvReac Type Severity Reaction Status Date / Time hydromorphone HCl Allergy Verified 10/21/17 02:43 [From Dilaudid] oxycodone HCl [From Percocet] Allergy Verified 10/21/17 02:43 - Home Medications Home Medications: Ambulatory Orders Albuterol Sulfate [Proair Hfa -] 1 - 2 inh PO PRN PRN 10/07/14 Clopidogrel Bisulfate [Plavix -] 75 mg PO DAILY 10/07/14 Furosemide [Lasix -] 20 mg PO DAILY 10/07/14 Rosuvastatin Calcium [Crestor] 20 mg PO HS 10/07/14 Tiotropium [place] [Spiriva -] 1 inh IH DAILY 10/07/14 Budesonide/Formeterol Fumarate [SYMBICORT 160/4.5mcg -] 1 puff IN PRN 07/05/17 Losartan Potassium 25 mg PO DAILY 07/05/17 Montelukast Sodium [Singulair] 10 mg PO DAILY 07/05/17 Pegfilgrastim [Neulasta] 6 mg SQ ASDIR 10/21/17 predniSONE [Deltasone -] 50 mg PO ASDIR 10/21/17 Family Disease History - Family Disease History Family History: Unable to Obtain Review of Systems Unable to obtain ROS, reason: Respiratory distress Physical Examination Vital Signs: Vital Signs Temperature 98.0 F 10/21/17 11:15 Pulse Rate 159 H 10/21/17 11:36 Respiratory Rate 30 H 10/21/17 11:15 Blood Pressure 98/58 10/21/17 11:36 O2 Sat by Pulse Oximetry (%) 97 10/21/17 11:15 Constitutional: Yes: Well Nourished HENT: Yes: WNL Neck: Yes: WNL, Supple Cardiovascular: Yes: Tachycardia Respiratory: Yes: Rales Gastrointestinal: Yes: WNL, Normal Bowel Sounds, Soft, Abdomen, Obese Extremities: Yes: WNL Edema: No ...Motor Strength: WNL Labs: CBC, BMP 10/21/17 11:32 Problem List - Problems (1) Acute on chronic respiratory failure with hypoxia and hypercapnia Assessment/Plan: Septic vs cardiogenic shock Cont iv antibxs ID/cardio/icu consults Pt intubated Cont pressors Code(s): J96.21 - ACUTE AND CHRONIC RESPIRATORY FAILURE WITH HYPOXIA; J96.22 - ACUTE AND CHRONIC RESPIRATORY FAILURE WITH HYPERCAPNIA (2) Rapid atrial fibrillation Assessment/Plan: Pt given IV amiodarone Cardio consult Code(s): I48.91 - UNSPECIFIED ATRIAL FIBRILLATION (3) Sepsis Assessment/Plan: Cont IV antibxs Panculture ID consult Code(s): A41.9 - SEPSIS, UNSPECIFIED ORGANISM (4) Acute kidney injury Assessment/Plan: Renal consult Code(s): N17.9 - ACUTE KIDNEY FAILURE, UNSPECIFIED (5) Neutropenia Code(s): D70.9 - NEUTROPENIA, UNSPECIFIED (6) COPD (chronic obstructive pulmonary disease) Code(s): J44.9 - CHRONIC OBSTRUCTIVE PULMONARY DISEASE, UNSPECIFIED (7) Lung cancer Code(s): C34.90 - MALIGNANT NEOPLASM OF UNSP PART OF UNSP BRONCHUS OR LUNG
[2017-10-21] MEDS ORDERED: ALBUTEROL SO4 2.5/IPRATROPIUM 0.5 INH SOL 3 ML VIAL.NEB. NEB PRN (12:35)
[2017-10-21] MEDS ORDERED: KETAMINE HCL 200 MG/20 ML VIAL IVPUSH ONE (13:08)
[2017-10-21] MEDS ORDERED: ROCURONIUM BROMIDE 50 MG/5 ML VIAL IV ONE (13:09)
[2017-10-21] MEDS ORDERED: FENTANYL INJECTION 500 MCG in DEXTROSE 5%-WATER - 90 ML IVPB SCH (13:15)
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
[2017-10-21 13:53] LABS: ALBUMIN 1.4 g/dl (3.4-5.0); ANION GAP 27 (8-16); BILIRUBIN,TOTAL 1.1 mg/dL (0.2-1.0); BLOOD UREA NITROGEN 68 mg/dL (7-18); CHLORIDE 84 mmol/L (98-107); CO2 9 mmol/L (21-32); CREATININE 5.5 mg/dL (0.55-1.02); MAGNESIUM 2.7 mg/dL (1.8-2.4); SGOT/AST 66 U/L (15-37); SGPT/ALT 38 U/L (12-78); TOT PROT 4.6 g/dl (6.4-8.2)
[2017-10-21 13:56] LABS: ALK PHOS 90 U/L (45-117)
[2017-10-21 14:05] VITALS: TEMP 98.6
--- NOTE | 2017-10-21 14:15 | CONSULT ---
Consult - text type - Consultation Consultation Note: Renal Consult for HALEY This is a 67 year old woman with PMhx of of NSCLC on Chemo, Hypertension, HLD, CAD, CHF, COPD on home O2 presented from home with AMS and generalzied weakness and found to have septic shock with neutropenia and Oliguric HALEY. Pt was intubated in the ED and is currently on 2 pressers. Solitario placed but no urine output. As per medical record pt had Chemo about 2 weeks ago. PMhx: as above Allergies: NKDA Family hx: unknown Social HX: unknown ROS: unable to obtain Home Medications Medication Instructions Recorded Albuterol Sulfate [Proair Hfa -] 1 - 2 inh PO PRN PRN 10/07/14 Clopidogrel Bisulfate [Plavix -] 75 mg PO DAILY 10/07/14 Furosemide [Lasix -] 20 mg PO DAILY 10/07/14 Rosuvastatin Calcium [Crestor] 20 mg PO HS 10/07/14 Tiotropium [place] [Spiriva -] 1 inh IH DAILY 10/07/14 Budesonide/Formeterol Fumarate 1 puff IN PRN 07/05/17 [SYMBICORT 160/4.5mcg -] Losartan Potassium 25 mg PO DAILY 07/05/17 Montelukast Sodium [Singulair] 10 mg PO DAILY 07/05/17 Pegfilgrastim [Neulasta] 6 mg SQ ASDIR 10/21/17 predniSONE [Deltasone -] 50 mg PO ASDIR 10/21/17 Vital Signs Temperature 98.6 F 10/21/17 14:17 Pulse Rate 65 10/21/17 14:17 Respiratory Rate 14 10/21/17 14:17 Blood Pressure 81/42 10/21/17 14:17 O2 Sat by Pulse Oximetry (%) 97 10/21/17 14:17 Intake & Output 10/18/17 10/19/17 10/20/17 10/21/17 23:59 23:59 23:59 23:59 Intake Total 4530 Balance 4530 Weight 77.111 kg intubated via ET Tube sedated Neck supple no JVD RRR, no M/R Dec BS at lung bases NT/ND No LE edema CBC, BMP 10/21/17 11:32 10/21/17 13:30 Current Medications Albuterol/Ipratropium (Duoneb -) 1 amp NEB Q6H PRN PRN Reason: SHORTNESS OF BREATH Heparin Sodium (Porcine) (Heparin -) 5,000 unit SQ BID NICK Dopamine HCl/Dextrose (Dopamine 400 Mg/D5w -) 400,000 mcg in 250 mls @ 14.458 mls/hr IVPB TITR ONE; 5 MCG/KG/MIN PRN Reason: Protocol Stop: 10/21/17 21:12 Last Titration: 10/21/17 07:00 Dose: 0 mcg/kg/min, 0 mls/hr Norepinephrine Bitartrate 4, (000 mcg/ Dextrose) 500 mls @ 37.5 mls/hr IV TITR ONE; 5 MCG/MIN PRN Reason: Protocol Stop: 10/21/17 18:04 Last Titration: 10/21/17 09:45 Dose: 32 mcg/min, 240 mls/hr Phenylephrine HCl 10,000 mcg/ (Dextrose) 500 mls @ 150 mls/hr IV TITR NICK; 50 MCG/MIN PRN Reason: Protocol Last Titration: 10/21/17 13:38 Dose: 200 mcg/min, 600 mls/hr Vasopressin 50 units/ Sodium (Chloride) 100 mls @ 4 mls/hr IVPB ASDIR NICK; 2 UNITS/HR PRN Reason: Protocol Last Admin: 10/21/17 11:10 Dose: 2 units/hr, 4 mls/hr Piperacillin/Tazobactam/Dextrose (Zosyn 3.375gm Ivpb (Premix)) 50 mls @ 100 mls /hr IVPB Q8H-IV NICK PRN Reason: Protocol Lactated Ringer's (Lactated Ringers Solution) 1,000 ml in 1,000 mls @ 50 mls/ hr IV ASDIR NICK Last Admin: 10/21/17 13:03 Dose: 50 mls/hr Fentanyl 500 mcg/ Dextrose 100 mls @ 10 mls/hr IVPB TITR NICK PRN Reason: 50 MCG/HR Stop: 10/22/17 13:14 Last Admin: 10/21/17 12:50 Dose: 10 mls/hr Epinephrine 1,000 mcg/ (Dextrose) 250 mls @ 115.66 mls/hr IVPB ASDIR NICK; 0.1 MCG/KG/MIN PRN Reason: Protocol Last Admin: 10/21/17 14:11 Dose: 0.1 mcg/kg/min, 115.66 mls/hr Vancomycin HCl 1,000 mg/ (Dextrose) 250 mls @ 166.667 mls/hr IVPB BID@0500, 1700 NICK PRN Reason: Protocol Piperacillin Sod/Tazobactam (Sod 2.25 gm/ Dextrose) 50 mls @ 100 mls/hr IVPB ONCE ONE Stop: 10/21/17 14:59 Methylprednisolone Sodium Succinate (Solu-Medrol -) 40 mg IVPUSH Q8H-IV NICK Piperacillin/Tazobactam/Dextrose (Zosyn 2.25gm Ivpb (Premix)) 2.25 gm IVPB ONCE ONE Stop: 10/21/17 14:39 67 year old woman with PMhx of of NSCLC on Chemo, Hypertension, HLD, CAD, CHF, COPD on home O2 presented from home with AMS and generalzied weakness and found to have septic shock with neutropenia and Oliguric HALEY. #Oliguric Renal Failure secondary to ATN vs. Tumor lysis vs. obstruction #Shock (septic vs cardiogenic) #Leukopenia #Acute Anemia #Anion-gap metabolic acidosis #Lactic Acidosis #NSCLC on Chemo Pt will need aggressive volume expansion with istotonic saline CVP goal 10-12, MAP > 70 vasopresers as needed check UA, UPCR and imaging of the kidney when stable check Uric acid levels continue solitario for strict I and O no acute indication for INSURANCE RISK ANALYST and pt unlikely to tolerate dialysis given hemodynamic instability at this time Repeat ABG as 2nd CMP showed bicarb of 9 may need bicarb gtt if PH < 7.2 Abx as per ID supportive care Repeat BMP, ABG Q6-8 hours prognosis is poor Alfredo Pringle DO
[2017-10-21 14:19] LABS: POTASSIUM 5.5 mmol/L (3.5-5.1)
[2017-10-21 14:21] LABS: CALCIUM 6.3 mg/dL (8.5-10.1); GLUCOSE,RANDOM 646 mg/dL (74-106); SODIUM 120 mmol/L (136-145)
[2017-10-21] MEDS ORDERED: PIPERACILLIN/TAZOB 2.25 GM 2.25 GM in DEXTROSE 5%-WATER - 50 ML IVPB ONE (14:30)
[2017-10-21] MEDS ORDERED: PIPERACILLIN/TAZOB 2.25 GM/50 ML PREMIX BAG IVPB ONE (14:38)
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
--- NOTE | 2017-10-21 14:47 | EKG ---
Test Reason : Blood Pressure : / mmHG Vent. Rate : 146 BPM Atrial Rate : 120 BPM P-R Int : 000 ms QRS Dur : 086 ms QT Int : 310 ms P-R-T Axes : 000 044 000 degrees QTc Int : 483 ms ATRIAL FIBRILLATION WITH RAPID VENTRICULAR RESPONSE LOW VOLTAGE QRS POSSIBLE INFERIOR INFARCT (CITED ON OR BEFORE 07-OCT-2014) CANNOT RULE OUT ANTERIOR INFARCT (CITED ON OR BEFORE 07-OCT-2014) ABNORMAL ECG WHEN COMPARED WITH ECG OF 21-OCT-2017 02:29, ATRIAL FIBRILLATION HAS REPLACED SINUS RHYTHM VENT. RATE HAS INCREASED BY 72 BPM Confirmed by SARA HOUSTON MD ([id number]) on 10/21/2017 2:46:39 PM Referred By: Confirmed By:SARA HOUSTON MD
--- NOTE | 2017-10-21 14:47 | EKG ---
Test Reason : Blood Pressure : / mmHG Vent. Rate : 074 BPM Atrial Rate : 074 BPM P-R Int : 152 ms QRS Dur : 084 ms QT Int : 422 ms P-R-T Axes : 031 001 021 degrees QTc Int : 468 ms POOR DATA QUALITY, INTERPRETATION MAY BE ADVERSELY AFFECTED SINUS RHYTHM WITH SINUS ARRHYTHMIA WITH FUSION COMPLEXES LOW VOLTAGE QRS POSSIBLE INFERIOR INFARCT (CITED ON OR BEFORE 07-OCT-2014) CANNOT RULE OUT ANTERIOR INFARCT , AGE UNDETERMINED ABNORMAL ECG WHEN COMPARED WITH ECG OF 01-OCT-2017 15:30, FUSION COMPLEXES ARE NOW PRESENT NONSPECIFIC T WAVE ABNORMALITY NOW EVIDENT IN ANTERIOR LEADS Confirmed by SARA HOUSTON MD ([id number]) on 10/21/2017 2:47:15 PM Referred By: Confirmed By:SARA HOUSTON MD
[2017-10-21 14:59] LABS: ARTERIAL BLOOD GAS pH 7.08 (7.35-7.45)
[2017-10-21] MEDS ORDERED: SODIUM BICARBONATE 8.4% - 50 ML ONE ×2 (15:00→15:47)
[2017-10-21] MEDS ORDERED: SODIUM BICARBONATE 8.4% - 150 ML ONE (15:00)
[2017-10-21 15:12] VITALS: BP 98/51; PULSE 83
[2017-10-21 15:42] LABS: PHOSPHOROUS 8.2 mg/dL (2.5-4.9)
--- NOTE | 2017-10-21 16:19 | PN ---
Progress Note (short form) - Note Progress Note: CCM Upon arrival to the ICU, pt became pulseless, ACLS initiated, see code sheet for further details. Pt at 3:52PM. Josias Bautista MD Problem List - Problems (1) Acute on chronic respiratory failure with hypoxia and hypercapnia Code(s): J96.21 - ACUTE AND CHRONIC RESPIRATORY FAILURE WITH HYPOXIA; J96.22 - ACUTE AND CHRONIC RESPIRATORY FAILURE WITH HYPERCAPNIA (2) Pneumonia Code(s): J18.9 - PNEUMONIA, UNSPECIFIED ORGANISM (3) Septic shock Code(s): A41.9 - SEPSIS, UNSPECIFIED ORGANISM; R65.21 - SEVERE SEPSIS WITH SEPTIC SHOCK (4) Acute kidney injury Code(s): N17.9 - ACUTE KIDNEY FAILURE, UNSPECIFIED (5) Acute pulmonary edema Code(s): J81.0 - ACUTE PULMONARY EDEMA (6) Lung cancer Code(s): C34.90 - MALIGNANT NEOPLASM OF UNSP PART OF UNSP BRONCHUS OR LUNG (7) CAD (coronary artery disease) Code(s): I25.10 - ATHSCL HEART DISEASE OF [place] CORONARY ARTERY W/O ANG PCTRS (8) COPD (chronic obstructive pulmonary disease) Code(s): J44.9 - CHRONIC OBSTRUCTIVE PULMONARY DISEASE, UNSPECIFIED
[2017-10-21] MEDS ORDERED: VANCOMYCIN 1,000 MG in DEXTROSE 5%-WATER - 250 ML IVPB SCH (17:00)
[2017-10-21] MEDS ORDERED: VANCOMYCIN 1,000 MG in DEXTROSE 5%-WATER - 250 ML IVPB ONE (17:00)
[2017-10-21] MEDS ORDERED: PIPERACILLIN/TAZOB 2.25 GM 2.25 GM in DEXTROSE 5%-WATER - 50 ML IVPB SCH (18:00)
[2017-10-21] MEDS ORDERED: methylPREDNISolone NA SUCC 40 MG/1 ML VIAL IVPUSH SCH (18:00)
[2017-10-21] MEDS ORDERED: PIPERACILLIN/TAZOB 3.375 GM 50 ML IVPB SCH (18:00)
[2017-10-21] MEDS ORDERED: HEPARIN NA (PORCINE) 5,000 UNITS/ML 1ML VIAL SQ SCH (22:00)
[2017-10-22] MEDS ORDERED: VANCOMYCIN 1,000 MG in DEXTROSE 5%-WATER - 250 ML IVPB SCH (05:00)
--- NOTE | 2017-10-22 21:00 | DS ---
Physical Examination Vital Signs: Vital Signs Temperature 98.6 F 10/21/17 14:17 Pulse Rate 83 10/21/17 15:12 Respiratory Rate 14 10/21/17 15:12 Blood Pressure 98/51 10/21/17 15:12 O2 Sat by Pulse Oximetry (%) 94 L 10/21/17 15:12 Labs: CBC, BMP 10/21/17 11:32 10/21/17 13:30 Discharge Summary Reason For Visit: SEPSIS - Instructions Referrals: Kimo Goodrich MD [Primary Care Provider] - Disposition: - Home Medications Comprehensive Discharge Medication List: Ambulatory Orders Albuterol Sulfate [Proair Hfa -] 1 - 2 inh PO PRN PRN 10/07/14 Clopidogrel Bisulfate [Plavix -] 75 mg PO DAILY 10/07/14 Furosemide [Lasix -] 20 mg PO DAILY 10/07/14 Rosuvastatin Calcium [Crestor] 20 mg PO HS 10/07/14 Tiotropium [place] [Spiriva -] 1 inh IH DAILY 10/07/14 Budesonide/Formeterol Fumarate [SYMBICORT 160/4.5mcg -] 1 puff IN PRN 07/05/17 Losartan Potassium 25 mg PO DAILY 07/05/17 Montelukast Sodium [Singulair] 10 mg PO DAILY 07/05/17 Pegfilgrastim [Neulasta] 6 mg SQ ASDIR 10/21/17 predniSONE [Deltasone -] 50 mg PO ASDIR 10/21/17
== END 2017-10-21 15:52 | disposition expired | DRG 871 ==
LOC: JER 02:08 → JERBED 05:06 → JICU 15:33
PROVIDERS: ADMIT Internal Medicine; ATTEND Internal Medicine
PROC: 5A1935Z Respiratory Ventilation, Less than 24 Consecutive Hours (ICD-10-PCS; principal; 2017-10-21)
PROC: 0BH17EZ Insertion of Endotracheal Airway into Trachea, Via Natural or Artificial Opening (ICD-10-PCS; 2017-10-21)
PROC: 05HM33Z Insertion of Infusion Device into Right Internal Jugular Vein, Percutaneous Approach (ICD-10-PCS; 2017-10-21)
PROC: 4A133B1 Monitoring of Arterial Pressure, Peripheral, Percutaneous Approach (ICD-10-PCS; 2017-10-21)
DX: A41.9 Sepsis, unspecified organism (principal); J96.21 Acute and chronic respiratory failure with hypoxia; J96.22 Acute and chronic respiratory failure with hypercapnia; J18.9 Pneumonia, unspecified organism; R65.21 Severe sepsis with septic shock; J81.0 Acute pulmonary edema; N17.9 Acute kidney failure, unspecified; C34.90 Malignant neoplasm of unspecified part of unspecified bronchus or lung; E87.2 Acidosis; D61.818 Other pancytopenia; E87.1 Hypo-osmolality and hyponatremia; I50.32 Chronic diastolic (congestive) heart failure; I48.91 Unspecified atrial fibrillation; D70.9 Neutropenia, unspecified; J44.9 Chronic obstructive pulmonary disease, unspecified; I25.10 Atherosclerotic heart disease of native coronary artery without angina pectoris; E78.5 Hyperlipidemia, unspecified; I11.0 Hypertensive heart disease with heart failure; I50.9 Heart failure, unspecified; D72.819 Decreased white blood cell count, unspecified; D64.9 Anemia, unspecified; Z98.61 Coronary angioplasty status; I34.0 Nonrheumatic mitral (valve) insufficiency
CPT/HCPCS: 36415; 36600; 70450-TC; 71045-TC-FY; 80053; 82550; 82553; 82803; 82962; 83605; 83735; 83880; 84100; 84443; 84484; 85025; 85610; 85730; 86850; 86900; 86901; 86922; 87040; 93005; 93010; 94002; 99285-25; J7030